=== PATIENT | female | born 1995 | race Caucasian/White ===

== ENCOUNTER 2023-07-02 08:22 | Outpatient (OUT) | payer OTHER, SELFPAY ==
[2023-07-02 10:37] LABS: HCG Quantitative <1 mIU/mL; Thyroid Stimulating Hormone 1.841 uIU/mL (0.358-3.740)
[2023-07-02 10:43] LABS: Estimated Average Glucose 88 mg/dL; Glycohemoglobin A1C 4.7 % (4.5-6.2)
[2023-07-03 09:07] LABS: FSH 5.9 mIU/mL (.); Luteinizing Hormone(LH) 9.1 mIU/mL (.)
[2023-07-06 10:09] LABS: DHEA, Serum 550 ng/dL (31-701)
== END 2023-07-02 08:23 | disposition home or self-care (01) ==
LOC: LAB 08:22
PROVIDERS: Visit Provider Obstetrics & Gynecology
DX: N92.0 Excessive and frequent menstruation with regular cycle (principal); N83.209 Unspecified ovarian cyst, unspecified side; E28.2 Polycystic ovarian syndrome
CPT/HCPCS: 36415; 82626; 82627; 83001; 83002; 83036; 84439; 84443; 84702

== ENCOUNTER 2023-08-08 12:18 | Outpatient (OUT) | payer OTHER, SELFPAY ==
--- NOTE | 2023-08-08 14:46 | US_ITS ---
The [address] [address] Patient Name: FRED WOO MRN: [id number] date: 1995 Sex: F Assigned Patient Location: [place] Current Patient Location: [place] Accession/Order Number: [id number] Exam Date: 08/08/2023 14:47 Report Date: 08/08/2023 16:09 At the request of: TEDDY SHINE Procedure: US pelvis w/ transvaginal EXAMINATION: US pelvis w/ transvaginal HISTORY: MENORRHAGIA , chronic pelvic pain on right side COMPARISON: No relevant comparison available. TECHNIQUE: Transabdominal and/or transvaginal sonographic examination was performed as indicated by examination type. 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 Uterus size: 7.7 x 3.1 x 5.4 cm ENDOMETRIUM: Not well seen; but not abnormally thickened. RIGHT OVARY: Normal size and appearance. Duplex Doppler demonstrates normal waveform and flow; resistive index 0.6. Ovary size: 2.4 x 1.8 x 2.7 cm LEFT OVARY: Normal size and appearance. Duplex Doppler demonstrates normal waveform and flow; resistive index 0.6. Ovary size: 2.4 x 1.8 x 2.7 cm CUL-DE-SAC: Unremarkable. No significant free fluid. BLADDER: Unremarkable. OTHER: None. US/US pelvis w/ transvaginal IMPRESSION: 1. Heterogeneous uterus which is not well seen were displayed on today's study, but suspicious for bicornuate uterus. Consider follow-up ultrasound for reevaluation and/or MRI of pelvis. Electronically authenticated by: JOSE DANIEL HERNANDEZ Date: 08/08/2023 16:09
== END 2023-08-08 12:19 | disposition home or self-care (01) ==
LOC: US 12:18
PROVIDERS: Visit Provider Obstetrics & Gynecology
DX: N92.0 Excessive and frequent menstruation with regular cycle (principal); E28.2 Polycystic ovarian syndrome
CPT/HCPCS: 76830; 76856

== ENCOUNTER 2023-08-25 07:49 | Outpatient (OUT) | payer OTHER, SELFPAY | END 2023-08-25 07:50 | disposition home or self-care (01) | LOC: PST 07:50 | PROVIDERS: Visit Provider Obstetrics & Gynecology | DX: Z01.818 Encounter for other preprocedural examination (principal); N92.0 Excessive and frequent menstruation with regular cycle; R10.2 Pelvic and perineal pain; N94.10 Unspecified dyspareunia ==

== ENCOUNTER 2023-09-02 09:14 | Day surgery (SDC) | payer OTHER, SELFPAY ==
[2023-08-25 08:32] VITALS: BP 117/78; PULSE 87; RESP 20; TEMP 36.2; O2SAT 100; BMI 37.4
[2023-09-02] VITALS (11 sets, daily range): BP systolic 99–124; BP diastolic 57–84; PULSE 87–110; RESP 10–22; TEMP 36.3–37.3; O2SAT 97–100; BMI 37.2
[2023-09-02 09:26] LABS: Basophils Percent Auto 0.5 % (0.2-2.0); Eosinophils Absolute Auto 0.1 10^3/uL (0.0-0.7); Eosinophils Percent Auto 1.8 % (0.9-7.0); Hemoglobin 12.9 g/dL (12.0-16.0); Immature Granulocytes Abs Auto 0.02 10^3/uL (0.00-0.03); Immature Granulocytes Pct Auto 0.3 % (0.0-0.5); Lymphocytes Absolute Auto 1.8 10^3/uL (1.2-3.8); Lymphocytes Percent Auto 23.7 % (20.5-60.0); Mean Corpuscular HGB Conc 33.9 g/dL (29.9-35.2); Mean Corpuscular Hemoglobin 28.4 pg (26.7-34.0); Mean Corpuscular Volume 83.5 fL (81.0-99.0); Mean Platelet Volume 9.3 fL (9.5-13.5); Monocytes Absolute Auto 0.5 10^3/uL (0.3-0.8); Monocytes Percent Auto 6.3 % (1.7-12.0); Neutrophils Absolute Auto 5.1 10^3/uL (1.4-6.5); Neutrophils Percent Auto 67.4 % (43.0-75.0); Platelet Count 363 10^3/uL (150-450); Red Blood Count 4.55 10^6/uL (4.20-5.40); Red Cell Distribution Width 12.2 % (11.0-15.0); White Blood Count 7.6 10^3/uL (4.0-11.0)
[2023-09-02 10:00] LABS: HCG Quantitative <1 mIU/mL
[2023-09-02] MEDS: LACTATED RINGER'S SOLUTION 1,000 ML 50 ML IV ×2 (10:05→13:06)
--- NOTE | 2023-09-02 13:11 | PM.ONB ---
Brief Operative Note Date of procedure: 09/02/23 Pre-op diagnosis: pelvic pain, menorrhagia Post-op diagnosis: same as pre-op Procedure: NAME OF PROCEDURE: [ D&c hysteroscopy with myosure, Diagnostic laparoscopy] small uterine subserosal fibroid noted, evidence of fluid in culdesac most likely from ruptured cyst PROCEDURE: The patient was taken back to the Operating Room where she was prepped and draped in normal sterile fashion after being placed under general anesthesia without difficulty. She was also placed in the dorsal lithotomy position. A weighted speculum was placed in the patient?s vagina. The anterior lip of the cervix was identified and grasped with a single tooth tenaculum. The patient?s uterus was then sounded roughly to [? 8] cm. The patient was then gently dilated using Hegar dilators. The hysteroscope was passed through the patient?s cervix into the uterus. Both ostia were identified. fluffy appearing endometrium. No gross evidence of malignancy, no gross evidence of polyps or fibroids. The MyoSure was then placed through the scope into the uterus, endometrial sampling in all quadrants was then performed. the myosure apparatus was removed along with the hysteroscope from the patient's uterus. At that point, gentle curettage was performed until a gritty texture was noted. The endometrial curettings were sent out to pathology. The single tooth tenaculum was then removed from the patient's anterior lip of the cervix where excellent hemostasis was noted. All instruments were removed from the patient?s vagina. A sponge stick was placed into the patient's vagina. Attention was turned to the patient's abdomen, where a small umbilical incision was made. The fascia was tented using John clamps and the fascia was entered sharply. Confirmation of intraabdominal placement of the 10 mm port was confirmed under direct visualization using a laparoscope. The patient's abdomen was then insufflated using CO2 gas with approximately 4 liters. A second port was placed left laterally, this was done under direct visualization with a 5 mm port. Survey of the patient's abdomen demonstrated normal liver and gallbladder. Survey of the patient's pelvic anatomy demonstrated normal appearing rt and lt ovary and tubes as well as normal appearing uterus, except for small subserosal fibroid. No endometrial implants could be noted, no evidence of any pelvic disease was seen, normal appearing pelvic cavity. All instruments were removed from the patient's abdomen. The patient's abdomen was deinsufflated of CO2 gas. The patient tolerated the procedure well. Sponge stick was removed from the patient's vagina. The patient's infraumbilical fascia was closed using #0 Vicryl on a GI needle. The patient's skin was closed laterally and infraumbilically using 4-0 Vicryl. The patient tolerated the procedure well. Sponge, lap and needle counts were correct x 2. The patient was taken to Recovery Room in stable condition. Anesthesia: CARLOS EDUARDO Surgeon: Savage Mejia [employer] Mechanic: Dorcas Arevalo Estimated blood loss (mL): 5 Pathology: none sent Condition: stable Disposition: PACU
[2023-09-02] MEDS: HYDROMORPHONE HCL 0.5 MG/0.5 ML SYRINGE IV (13:36)
[2023-09-02] MEDS: PROMETHAZINE HCL 25 MG TABLET PO (14:26)
--- NOTE | 2023-09-02 14:28 | PC.NURSE ---
c/o nausea; no emesis; medicated with Phenergan as ordered
--- NOTE | 2023-09-02 14:42 | PC.NURSE ---
No further c/o nausea; denies urge to void; peripad dry
[2023-09-02] MEDS: LACTATED RINGER'S SOLUTION 1,000 ML 150 ML IV (15:07)
--- NOTE | 2023-09-02 15:10 | PC.NURSE ---
Denies urge to void; peripad dry
--- NOTE | 2023-09-02 15:43 | PC.NURSE ---
Up to bathroom and voids clear yellow without difficulty
== END 2023-09-02 15:30 | disposition home or self-care (01) ==
PROVIDERS: PCP Family Medicine; Visit Provider Obstetrics & Gynecology
PROC: (CPT 49320; principal; 2023-09-02 10:35)
DX: N92.0 Excessive and frequent menstruation with regular cycle (principal); R10.2 Pelvic and perineal pain; D25.2 Subserosal leiomyoma of uterus; N94.10 Unspecified dyspareunia; Q51.818 Other congenital malformations of uterus; J45.909 Unspecified asthma, uncomplicated
CPT/HCPCS: 49320; 58558; 36415; 84702; 85025; 88305; J1170; J2704

== ENCOUNTER 2023-11-28 20:45 | Outpatient (REF) | payer OTHER, SELFPAY ==
--- OUTSIDE RECORDS SUMMARY | 2023-11-28 20:48 | XMS_ITS | CCD ---
Author Name Unknown Address [facility] [address] [place] [address] Organization [facility] Care Team Providers Care Strategic Alliances Manager Name Role Phone MARYAM AC Attending Unavailable MARYAM AC Consulting Unavailable MARYAM AC Admitting Unavailable Maryam Ac Unavailable DO Maryam Ac Primary Care Provider [phone] DO Maryam Ac Attending Provider Femi Cordoba Unavailable Dahiana Garcia Unavailable DO Maryam Ac Primary Care Provider DO Maryam Ac Attending Provider DO Maryam Ac Primary Care Provider DO Maryam Ac Attending Provider DO Maryam Ac Primary Care Provider DO Maryam Ac Attending Provider Maryam Ac Admitting Unavailable Maryam Ac Primary Care Unavailable Maryam Ac Attending Unavailable Maryam Ac Admitting Unavailable Maryam Ac Primary Care Unavailable Maryam Ac Attending Unavailable Maryam Ac Admitting Unavailable Maryam Ac Primary Care Unavailable Maryam Ac Attending Unavailable Maryam Ac Admitting Unavailable Maryam Ac Primary Care Unavailable Maryam Ac Attending Unavailable Maryam Ac Admitting Unavailable Maryam Ac Primary Care Unavailable Maryam Ac Attending Unavailable TEDDY MEJIA Attending Unavailable ZEESHAN DONOHUE Attending Unavailable ZEESHAN DONOHUE Referring Unavailable Allergies Allergy Classification Reported Allergen(s) Allergy Type Date of Onset Reaction(s) Facility (15 sources) Amoxicillin / Clavulanate Drug Allergy upset stomach [employer] Other (6 sources) Escitalopram Drug Allergy had thoughts of harming herself [facility] [facility] Other (20 sources) Morphine Drug Allergy 2 hives [facility] (6 sources) venlafaxine Drug Allergy 75 MG caused thoughts of harming herself [facility] [facility] Other (3 sources) Amoxicillin / Clavulanate Drug Allergy upset stomach [facility] [facility] Other (1 source) Morphine Drug Allergy 2 [facility] Repository Medications Current Medications Medication Drug Class(es) Dates Sig (Normalized) Sig (Original) [id number] 200 actuat albuterol 0.09 mg/actuat metered dose inhaler (6 sources) beta2-Adrenergic Agonist take 2 puff(s) by inhalation every four hours as needed ProAir HFA 108 (90 Base) MCG/ACT 2 puffs as needed Inhalation every 4 hrs prn for 90 days Active azithromycin 250 mg oral tablet (2 sources) Macrolide Antimicrobial Start: 08-19-2023 Azithromycin 250 MG 2 tablets on day 1 Orally then take 1 tablet daily on days 2-5 for 5 days Aug, Active 24 hr buPROPion hydrochloride 300 mg extended release oral tablet (20 sources) Aminoketone take 1 tablet by mouth every twenty-four hours Wellbutrin XL 300 MG 1 tablet in the morning Orally Once a day Active take 1 tablet by conchis th every twelve hours buPROPion HCl 100 MG 1 tablet Orally Twi ce a day Not-Taking/PRN take 1 tablet by conchis th every twenty-four hours Wellbutrin XL 150 MG 1 tablet in the mor flor Orally Once a day Active take 1 tablet by conchis th every twelve hours buPROPion HCl 75 MG 1 tablet Orally Twic e a day Active ciprofloxacin 500 mg oral tablet (2 sources) Quinolone Antimicrobial Start: 11-01-2023 take 1 tablet by mouth every twelve hours Ciprofloxacin HCl 500 MG 1 tablet Orally Twice a day Oct, Active hydrOXYzine hydrochloride 25 mg oral tablet (6 sources) Antihistamine take 1 tablet by mouth every eight hours hydrOXYzine HCl 25 MG 1 tablet as needed Orally every 8 hrs prn Active montelukast 10 mg oral tablet (18 sources) Leukotriene Receptor Antagonist take 1 tablet by mouth every twenty-four hours Singulair 10 mg 1 tablet in the evening Orally Once a day Active predniSONE 20 mg oral tablet (2 sources) Start: 08-19-2023 take 2 tablets by mouth once daily at mealtime predniSONE 20 MG 2 tablets Orally qd with food or milk for 5 days Aug, Active ProAir HFA 108 (90 Base) MCG/ACT (12 sources) take 2 puff(s) by inhalation every four hours as needed ProAir HFA 108 (90 Base) MCG/ACT 2 puffs as needed Inhalation every 4 hrs prn Active take 2 puff(s) by in halation every four hours as needed ProAir HFA 108 (90 Base) MCG/ACT 2 puffs as needed Inhalation every 4 hrs prn for 90 days Active 24 hr propranolol hydrochloride 80 mg extended release oral capsule (6 sources) beta-Adrenergic Madiha Start: 09-16-2021 take 1 capsule by mouth every twenty-four hours Inderal LA 80 MG 1 capsule Orally Once a day for 90 days Sep, Active traZODone hydrochloride 50 mg oral tablet (2 sources) Serotonin Reuptake Inhibitor take 1 tablet by mouth every twenty-four hours traZODone HCl 50 MG 1 tablet at bedtime as needed Orally Once a day Active Completed/Discontinued Medications Medication Drug Class(es) Dates Sig (Normalized) Sig (Original) cephalexin 500 mg oral capsule (2 sources) Cephalosporin Antibacterial Start: 04-06-2023 take 1 capsule by mouth every six hours Cephalexin 500 MG 1 capsule Orally qid for 7 days March, Not-Taking 12 hr cloNIDine hydrochloride 0.1 mg extended release oral tablet (18 sources) Central alpha-2 Adrenergic Agonist take 1 tablet by mouth every twenty-four hours cloNIDine HCl 0.1 MG 1 tablet Orally Once a day Not-Taking/PRN cloNIDine HCl ER 0.1 MG 1 tablet every morning Orally Once a day Not-Taking/PRN 24 hr venlafaxine 37.5 mg extended release oral capsule (3 sources) Serotonin and Norepinephrine Reuptake Inhibitor take 1 capsule by mouth every twenty-four hours Effexor XR 37.5 MG 1 capsule with food Orally Once a day for 7 days Not-Taking Problems Active Problems Problem Classification Problem Date Documented Da te Episodic/Chronic Anxiety disorders (20 sources) Panic disorder; Translations: [Panic disorder [episodic paroxysmal anxiety]] Onset: 09-16-2021 Resolved: 04-29-2022 Chronic Asthma (20 sources) Asthma; Translations: [Unspecified asthma, uncomplicated] Onset: 09-16-2021 Resolved: 04-29-2022 Chronic Genitourinary symptoms and ill-defined conditions (3 sources) Hematuria, unspecified; Translations: [Hematuria, unspecified] Onset: 05-25-2022 Resolved: 05-25-2022 Episodic Headache; including migraine (4 sources) Migraine, unspecified, not intractable, without status migrainosus Onset: 09-16-2021 Resolved: 04-29-2022 Chronic Immunizations and screening for infectious disease (4 sources) Contact with and (suspected) exposure to other viral communicable diseases; Translations: [CONTCT EXPS OTH VIRL COMMUNICABL DZ] Onset: 10-17-2020 Episodic Menstrual disorders (3 sources) Dysmenorrhea; Translations: [Dysmenorrhea, unspecified] Chronic Other aftercare (1 source) Other alf (current) drug therapy Episodic Other gastrointestinal disorders (1 source) Diarrhea, unspecified Episodic Other gastrointestinal disorders (4 sources) Dysphagia; Translations: [Dysphagia, unspecified] Episodic Other gastrointestinal disorders (1 source) Dysphagia, unspecified Episodic Other liver diseases (13 sources) Steatosis of liver; Translations: [Fatty (change of) liver, not elsewhere classified] Chronic Other liver diseases (3 sources) Fatty (change of) liver, not elsewhere classified Chronic Other liver diseases (4 sources) Hepatic fibrosis; Translations: [Liver fibrosis] Chronic Other lower respiratory disease (1 source) Cough; Translations: [COUGH] Onset: 10-31-2020 Episodic Other lower respiratory disease (1 source) Shortness of breath Episodic Other nutritional; endocrine; and metabolic disorders (4 sources) Abnormal weight loss Onset: 10-27-2021 Resolved: 04-29-2022 Episodic Other upper respiratory infections (19 sources) Acute pharyngitis, unspecified; Translations: [Acute sinusitis] Onset: 10-31-2020 Episodic Residual codes; unclassified (18 sources) Insomnia; Translations: [Insomnia, unspecified] Episodic Residual codes; unclassified (1 source) Pain, unspecified Episodic Residual codes; unclassified (1 source) Insomnia, unspecified Episodic Unclassified (1 source) Other manager terminal (current) drug therapy; Translations: [Other alf (current) drug therapy] Onset: 12-29-2022 Past or Other Problems Problem Classification Problem Date Documented Da te Episodic/Chronic Abdominal pain (5 sources) Unspecified abdominal pain; Translations: [Unspecified abdominal pain] Onset: 05-25-2022 Resolved: 05-25-2022 Episodic Malaise and fatigue (2 sources) Other fatigue; Translations: [Other fatigue] Onset: 12-29-2022 Episodic Other circulatory disease (2 sources) Elevated blood-pressure reading, without diagnosis of hypertension Onset: 09-16-2021 Resolved: 10-27-2021 Episodic Other hematologic conditions (3 sources) Other abnormality of red blood cells; Translations: [Other abnormality of red blood cells] Onset: 12-29-2022 Episodic Unclassified (8 sources) Liver fibrosis; Translations: [Liver fibrosis] Unclassified (1 source) Liver fibrosis K74.00 Viral infection (1 source) COVID-19 Results Test Name Value Interpretation Reference Range Facility Automated erythrocytes count in urine sediment (number/area)Ordered By: Maryam Ac on 11-08-2023 RBC Auto (Urine sed) [#/Area] 0-1 [HPF] 0-4 [facility] Automated leukocytes count i n urine sediment (number/area)Ordered By: Maryam Ac on 11-08-2023 WBC Auto (Urine sed) [#/Area] 0-1 [HPF] 0-4 [facility] Bilirubin Test strip Ql (U)O rdered By: Maryam Ac on 11-08-2023 Bilirubin Ql (U) Negative Negative [facility] Color Auto (U)Ordered By: Brad Ac on 11-08-2023 Color (U) Yellow Yellow [facility] Dipstick and Microscopicon 1 01-09-2023 Appearance (U) Clear Normal Clear [facility] Comment on above: Order Comment: Reaso n for Exam Abdominal pain Name Collection Type:: Clean-Voided Midstream Performed By: #### C UU, CBC, ADDONUAPLUS, CMP, LIPASE, POLLO #### [address] Bacteria,Urine None Seen Normal None Seen [facility] Comment on above: Order Comment: Reaso n for Exam Abdominal pain Name Collection Type:: Clean-Voided Midstream Performed By: #### C UU, CBC, ADDONUAPLUS, CMP, LIPASE, POLLO #### [facility] [address] Bilirubin,Urine Negative Normal Negative [facility] Comment on above: Order Comment: Reaso n for Exam Abdominal pain Name Collection Type:: Clean-Voided Midstream Performed By: #### C UU, CBC, ADDONUAPLUS, CMP, LIPASE, POLLO #### [facility] [address] Color (U) Yellow Normal Yellow [facility] Comment on above: Order Comment: Reaso n for Exam Abdominal pain Name Collection Type:: Clean-Voided Midstream Performed By: #### C UU, CBC, ADDONUAPLUS, CMP, LIPASE, POLLO #### [facility] [address] [place] [address] Glucose Ql (U) Normal Normal Normal [facility] Comment on above: Order Comment: Reaso n for Exam Abdominal pain Name Collection Type:: Clean-Voided Midstream Performed By: #### C UU, CBC, ADDONUAPLUS, CMP, LIPASE, POLLO #### [address] Hyaline Casts,Urine 0-8 Normal 0-8 [facility] Comment on above: Order Comment: Reaso n for Exam Abdominal pain Name Collection Type:: Clean-Voided Midstream Result Comment: PERF ORMED BY: [place] [address] PATHOLOGIST INTERNATIONAL OPERATIONS MANAGER NEO JOSEPH M.D. Performed By: #### C UU, CBC, ADDONUAPLUS, CMP, LIPASE, POLLO #### [facility] [address] Ketones Ql (U) Negative Normal Negative [facility] Comment on above: Order Comment: Reaso n for Exam Abdominal pain Name Collection Type:: Clean-Voided Midstream Performed By: #### C UU, CBC, ADDONUAPLUS, CMP, LIPASE, POLLO #### [facility] [address] Leukocyte esterase Test strip Ql (U) 1+ High Negative [facility] Comment on above: Order Comment: Reaso n for Exam Abdominal pain Name Collection Type:: Clean-Voided Midstream Performed By: #### C UU, CBC, ADDONUAPLUS, CMP, LIPASE, POLLO #### [facility] [address] [place] [address] Nitrite,Urine Negative Normal Negative [facility] Comment on above: Order Comment: Reaso n for Exam Abdominal pain Name Collection Type:: Clean-Voided Midstream Performed By: #### C UU, CBC, ADDONUAPLUS, CMP, LIPASE, POLLO #### [address] Occult Blood,Urine Negative Normal Negative [facility] Comment on above: Order Comment: Reaso n for Exam Abdominal pain Name Collection Type:: Clean-Voided Midstream Performed By: #### C UU, CBC, ADDONUAPLUS, CMP, LIPASE, POLLO #### [address] pH (U) 7.5 [pH] Normal 5.0-9.0 [facility] Comment on above: Order Comment: Reaso n for Exam Abdominal pain Name Collection Type:: Clean-Voided Midstream Performed By: #### C UU, CBC, ADDONUAPLUS, CMP, LIPASE, POLLO #### [facility] [address] [place] [address] Protein,Urine Negative Normal Negative [facility] Comment on above: Order Comment: Reaso n for Exam Abdominal pain Name Collection Type:: Clean-Voided Midstream Performed By: #### C UU, CBC, ADDONUAPLUS, CMP, LIPASE, POLLO #### [facility] [address] [place] [address] RBC LM.HPF (Urine sed) [#/Area] 0 /[HPF] Normal 0-4 [facility] Comment on above: Order Comment: Reaso n for Exam Abdominal pain Name Collection Type:: Clean-Voided Midstream Performed By: #### C UU, CBC, ADDONUAPLUS, CMP, LIPASE, POLLO #### [facility] [address] Specificy Hubbard,Urine 1.007 Normal 1.001-1.030 [facility] Comment on above: Order Comment: Reaso n for Exam Abdominal pain Name Collection Type:: Clean-Voided Midstream Performed By: #### C UU, CBC, ADDONUAPLUS, CMP, LIPASE, POLLO #### [facility] [address] Squamous Epithelial Cell,Urine 0-1 Normal 0-2 [facility] Comment on above: Order Comment: Reaso n for Exam Abdominal pain Name Collection Type:: Clean-Voided Midstream Performed By: #### C UU, CBC, ADDONUAPLUS, CMP, LIPASE, POLLO #### [address] Urobilinogen,Urine Normal Normal Normal [facility] Comment on above: Order Comment: Reaso n for Exam Abdominal pain Name Collection Type:: Clean-Voided Midstream Performed By: #### C UU, CBC, ADDONUAPLUS, CMP, LIPASE, POLLO #### [address] WBC LM.HPF (Urine sed) [#/Area] 0 /[HPF] Normal 0-4 [facility] Comment on above: Order Comment: Reaso n for Exam Abdominal pain Name Collection Type:: Clean-Voided Midstream Performed By: #### C UU, CBC, ADDONUAPLUS, CMP, LIPASE, POLLO #### [address] Ketones Auto test strip (U) [Mass/Vol]Ordered By: Maryam Ac on 11-08-2023 Ketones (U) [Mass/Vol] Negative Negative [facility] - UrinalysisOrder ed By: Maryam Ac on 11-08-2023 Hyaline casts LM Ql (Urine sed) 0-8 [LPF] 0-8 [facility] Nitrite Test strip Ql (U)Ord ered By: Maryam Ac on 11-08-2023 Nitrite Ql (U) Negative Negative [facility] Protein Auto test strip (U) [Mass/Vol]Ordered By: Maryam Ac on 11-08-2023 Protein (U) [Mass/Vol] Negative Negative [facility] Specific gravity Auto test s trip (U) [Rel density]Ordered By: Maryam Ac on 11-08-2023 Specific gravity (U) [Rel density] 1.007 1.001-1.030 [facility] Squamous epithelial cells de tection in urine sediment by light microscopyOrdered By: Maryam Ac on 11-08-2023 Epithelial cells.squamous LM Ql (Urine sed) 0-1 [HPF] 0-2 [facility] Urine Cultureon 11-08-2023 Bacteria identified Cx Nom (U) 30,000 colonies/ml mixed bacterial skin contaminants 2 Days PERFORMED BY: [place] [address] PATHOLOGIST INTERNATIONAL OPERATIONS MANAGER NEO JOSEPH M.D. [facility] Comment on above: Performed By: #### C UU, CBC, ADDONUAPLUS, CMP, LIPASE, POLLO #### [address] Urine bacteria detection by automated methodOrdered By: Maryam Ac on 11-08-2023 Bacteria Auto Ql (U) None seen None Seen [facility] Urine clarity by refractomet ry automatedOrdered By: Maryam Ac on 11-08-2023 Clarity Refractometry automated (U) Clear Clear [facility] Urine glucose measurement by automated test strip (mass/volume)Ordered By: Maryam Ac on 11-08-2023 Glucose Auto test strip (U) [Mass/Vol] Normal mg/dL Normal [facility] Urine hemoglobin detection b y automated test stripOrdered By: Maryam Ac on 11-08-2023 Hemoglobin Auto test strip Ql (U) Negative Negative [facility] Urine leukocyte esterase det ection by automated test stripOrdered By: Maryam Ac on 11-08-2023 Leukocyte esterase Auto test strip Ql (U) 1+ Negative [facility] Urobilinogen Auto test strip (U) [Mass/Vol]Ordered By: Maryam Ac on 11-08-2023 Urobilinogen (U) [Mass/Vol] Normal mg/dL Normal [facility] pH Auto test strip (U)Ordere d By: Maryam Ac on 11-08-2023 pH (U) 7.5 [pH] 5.0-9.0 [facility] US renal BIon 11-03-2023 US renal BI [facility] Main [place] [id number] Ultrasound Report Signed Patient: Tish Woo MR#: [id number] 99 : 1995 Acct:[id number] Age/Sex: 28 / F ADM Date: 11/03/23 Loc: Room: Type: [facility] Attending Dr: Maryam Ac DO Ordering Provider: Maryam Ac DO Date of Service: 11/03/23 US/US renal BI: R31.9 Copies to: aMryam Ac DO Bilateral Renal Ultrasound HISTORY: Flank pain since Tuesday. Hematuria. COMPARISON: None RIGHT kidney measures 10.0 cm. LEFT kidney measures 11.8 cm. Hydronephrosis: None RENAL STONE: No shadowing renal calculus is seen. RENAL LESIONS: No renal lesion identified. URINARY BLADDER: Bilateral ureteral jets identified. Mild post void residual. PROSTATE GLAND Not assessed US/US renal BI IMPRESSION : No hydronephrosis. Impression dictated by: Tin Duran M.D.11/03/2023 3:56 PM Dictation Location: [place] [address] Tech: [facility] Transcribed By: [facility] 11/03/23 1556 Dictated By: Tin Duran DO 11/03/23 1555 Signed By: 11/03/23 1556 Normal [facility] XR ABDOMEN 1 VIEWon 10-30-20 XR ABDOMEN 1 VIEW FINDINGS: Gas and copious stool in colon. No diffuse small bowel dilatation. No mass effect. No abnormal calcification with no calculi identified overlying kidneys bilaterally. Osseous structures intact. IMPRESSION: Constipation. ELECTRONICALLY SIGNED BY: José Miguel Driscoll MD Normal Not Available US gall bladderon 04-19-2023 US gall bladder [facility] [address] [address] Ultrasound Report Signed Patient: Tish Woo MR#: [id number] [birth year] : 1995 Acct:[id number] Age/Sex: 28 / F ADM Date: 04/19/23 Loc: Room: Type: [facility] Attending Dr: Maryam Ac DO Ordering Provider: Maryam Ac DO Date of Service: 04/19/23 US/US gall bladder: Abdominal pain Copies to: Maryam Ac DO Gallbladder ultrasound HISTORY: Abdominal pain COMPARISON: None Negative ultrasound Quinones's sign reported. COMMON BILE DUCT: Normal caliber. No intraluminal abnormality. LIVER CONTOUR: Normal. LIVER PARENCHYMA: Normal echogenicity HEPATIC LESION: None INTRAHEPATIC BILIARY DUCTAL DILATATION No ductal dilatation identified. GALLSTONES: No shadowing gallstones. GALLBLADDER SLUDGE: No gallbladder sludge. GALLBLADDER WALL: Normal thickness PERICHOLECYSTIC FLUID: None Pancreas: Visualized portions of the pancreas unremarkable PORTAL VEIN: Normal blood flow. Liver size: Normal No RIGHT hydronephrosis identified. US/US gall bladder IMPRESSION: Unremarkable exam Impression dictated by: Tin Duran M.D.04/19/2023 10:19 AM Dictation Location: [place] [address] Tech: Neeru Balbuena Transcribed By: [facility] 04/19/23 1019 Dictated By: Tin Duran DO 04/19/23 1007 Signed By: 04/19/23 1019 Normal [facility] Alanine aminotransferase [En zymatic activity/volume] in Serum or PlasmaOrdered By: Maryam Ac on 04-14-2023 ALT [Catalytic activity/Vol] 19 U/L 7-52 [facility] Albumin [Mass/volume] in Ser um or Plasma by Bromocresol green (BCG) dye binding methoOrdered By: Maryam Ac on 04-14-2023 Albumin BCG dye [Mass/Vol] 4.6 g/dL 3.5-5.7 [facility] Alkaline phosphatase [Enzyma tic activity/volume] in Serum or PlasmaOrdered By: Maryam Ac on 04-14-2023 ALP [Catalytic activity/Vol] 70 U/L 34-104 [facility] Amylaseon 04-14-2023 Amylase 32 U/L Normal 29-103 U/L [employer] Other Amylase [Catalytic activity/Vol] 32 U/L Normal 29-103 [facility] Comment on above: Order Comment: Reaso n for Exam Abdominal pain Performed By: #### C UU, CBC, ADDONUAPLUS, CMP, LIPASE, POLLO #### [facility] [address] Amylase [Enzymatic activity/ volume] in Serum or PlasmaOrdered By: Maryam Ac on 04-14-2023 Amylase [Catalytic activity/Vol] 32 U/L 29103 [facility] Aspartate aminotransferase [ Enzymatic activity/volume] in Serum or PlasmaOrdered By: Maryam Ac on 04-14-2023 AST [Catalytic activity/Vol] 14 U/L 13-39 [facility] Automated erythrocytes count in urine sediment (number/area)Ordered By: Maryam Ac on 04-14-2023 RBC Auto (Urine sed) [#/Area] 0-1 [HPF] 0-4 [facility] Automated leukocytes count i n urine sediment (number/area)Ordered By: Maryam Ac on 04-14-2023 WBC Auto (Urine sed) [#/Area] 5-9 [HPF] 0-4 [facility] Basophils Auto (Bld) [#/Vol] Ordered By: Maryam Ac on 04-14-2023 Basophils (Bld) [#/Vol] 0.0 10*3/uL 0.0-0.2 [facility] Basophils/100 WBC Auto (Bld) Ordered By: Maryam Ac on 04-14-2023 Basophils/100 WBC (Bld) 0.3 % . F [facility] Bilirubin Test strip Ql (U)O rdered By: Maryam Ac on 04-14-2023 Bilirubin Ql (U) Negative Negative [facility] Bilirubin.total [Mass/volume ] in Serum or PlasmaOrdered By: Maryam Ac on 04-14-2023 Bilirubin [Mass/Vol] 0.5 mg/dL 0.3-1.[address] [facility] Calcium [Mass/volume] in Ser um or PlasmaOrdered By: Maryam Ac on 04-14-2023 Calcium [Mass/Vol] 9.9 mg/dL 8.6-10.3 [facility] Carbon dioxide, total [Moles /volume] in Serum or PlasmaOrdered By: Maryam Ac on 04-14-2023 CO2 [Moles/Vol] 27.5 mmol/L 21.0-31.0 [facility] Chloride [Moles/volume] in S james or PlasmaOrdered By: Maryam Ac on 04-14-2023 Chloride [Moles/Vol] 106 mmol/L 98-[address] [facility] Color Auto (U)Ordered By: Brad Ac on 04-14-2023 Color (U) Yellow Yellow [facility] Complete Blood Count Auto Di ffon 04-14-2023 Basophils (Bld) [#/Vol] [id number] 10*3/uL Normal 0.0-0.2 10*3/uL [employer] Other Basophils/100 WBC (Bld) 0.300 % . % [employer] Other Eosinophils (Bld) [#/Vol] [id number] 10*3/uL Normal 0.0-0.45 10*3/uL [employer] Other Eosinophils/100 WBC (Bld) 1.400 % . % [employer] Other Erythrocyte distribution width (RBC) [Ratio] 12.700 % Normal 11.9-15.3 % [employer] Other Hematocrit (Bld) [Volume fraction] 39.700 % Normal 34.0-46.4 % [employer] Other Hemoglobin (Bld) [Mass/Vol] 13.245199 g/dL Normal 11.8-15.4 g/dL [employer] Other Lymphocytes (Bld) [#/Vol] [id number] 10*3/uL Normal 1.00-4.8 10*3/uL [employer] Other Lymphocytes/100 WBC (Bld) 22.900 % . % [employer] Other MCH (RBC) [Entitic mass] 29.1000 pg Normal 24.7-34.3 p g [employer] Other MCV (RBC) [Entitic vol] 84.6000 fL Normal 80-100 fL [facility] [employer] Other Monocytes (Bld) [#/Vol] [id number] 10*3/uL Normal 0.0-0.8 10*3/uL [employer] Other Monocytes/100 WBC (Bld) 6.300 % . % [facility] [employer] Other Neutrophils (Bld) [#/Vol] 5.541572877 10*3/uL Normal 1.8-7.7 10*3/uL [employer] Other Neutrophils/100 WBC (Bld) 69.100 % . % [employer] Other Platelet mean volume (Bld) [Entitic vol] 8.2000 fL Normal 6.3-10.7 fL [facility] Other WBC (Bld) [#/Vol] 8.208914860 10*3/uL Normal 3.8 -11.6 10*3/uL [employer] Other Complete Blood Count Auto Diff 8.2 10*3/uL Normal 3.8-11.6 10*3/uL [employer] Other Complete Blood Count Auto Diff 34.5 g/dL Normal 32.0-35.0 g/dL [employer] Other Complete Blood Count Auto Diff 0.1 /100{WBC} Normal 0-0.5 /100{WBC} [employer] Other Basophils (Bld) [#/Vol] 0.0 10*3/uL Normal 0.0-0.2 [facility] Comment on above: Order Comment: Reaso n for Exam Abdominal pain Result Comment: PERF ORMED BY: [facility] [address] [place] [address] PATHOLOGIST INTERNATIONAL OPERATIONS MANAGER NEO JOSEPH M.D. Performed By: #### C UU, CBC, ADDONUAPLUS, CMP, LIPASE, POLLO #### [address] Basophils/100 WBC (Bld) 0.3 % Normal . [facility] Comment on above: Order Comment: Reaso n for Exam Abdominal pain Performed By: #### C UU, CBC, ADDONUAPLUS, CMP, LIPASE, POLLO #### [address] Eosinophils (Bld) [#/Vol] 0.1 10*3/uL Normal 0.0-0.45 [facility] Comment on above: Order Comment: Reaso n for Exam Abdominal pain Performed By: #### C UU, CBC, ADDONUAPLUS, CMP, LIPASE, POLLO #### [address] Eosinophils/100 WBC (Bld) 1.4 % Normal . [facility] Comment on above: Order Comment: Reaso n for Exam Abdominal pain Performed By: #### C UU, CBC, ADDONUAPLUS, CMP, LIPASE, POLLO #### [address] Erythrocyte distribution width (RBC) [Ratio] 12.7 % Normal 11.9-15.3 [facility] Comment on above: Order Comment: Reaso n for Exam Abdominal pain Performed By: #### C UU, CBC, ADDONUAPLUS, CMP, LIPASE, POLLO #### [address] Hematocrit (Bld) [Volume fraction] 39.7 % Normal 34.0-46.4 [facility] Comment on above: Order Comment: Reaso n for Exam Abdominal pain Performed By: #### C UU, CBC, ADDONUAPLUS, CMP, LIPASE, POLLO #### [address] Hemoglobin (Bld) [Mass/Vol] 13.7 g/dL Normal 11.8-15.4 [facility] Comment on above: Order Comment: Reaso n for Exam Abdominal pain Performed By: #### C UU, CBC, ADDONUAPLUS, CMP, LIPASE, POLLO #### [facility] [address] Lymphocytes (Bld) [#/Vol] 1.9 10*3/uL Normal 1.00-4.8 [facility] Comment on above: Order Comment: Reaso n for Exam Abdominal pain Performed By: #### C UU, CBC, ADDONUAPLUS, CMP, LIPASE, POLLO #### [address] Lymphocytes/100 WBC (Bld) 22.9 % Normal . [facility] Comment on above: Order Comment: Reaso n for Exam Abdominal pain Performed By: #### C UU, CBC, ADDONUAPLUS, CMP, LIPASE, POLLO #### [address] MCH (RBC) [Entitic mass] 29.1 pg Normal 24.7-34.3 [facility] Comment on above: Order Comment: Reaso n for Exam Abdominal pain Performed By: #### C UU, CBC, ADDONUAPLUS, CMP, LIPASE, POLLO #### [address] MCV (RBC) [Entitic vol] 84.6 fL Normal 80-100 F [facility] Comment on above: Order Comment: Reaso n for Exam Abdominal pain Performed By: #### C UU, CBC, ADDONUAPLUS, CMP, LIPASE, POLLO #### [address] Mean Corpuscular HGB Conc 34.5 g/dL Normal 32.0-35.0 [facility] Comment on above: Order Comment: Reaso n for Exam Abdominal pain Performed By: #### C UU, CBC, ADDONUAPLUS, CMP, LIPASE, POLLO #### [address] Monocytes (Bld) [#/Vol] 0.5 10*3/uL Normal 0.0-0.8 [facility] Comment on above: Order Comment: Reaso n for Exam Abdominal pain Performed By: #### C UU, CBC, ADDONUAPLUS, CMP, LIPASE, POLLO #### [facility] [address] Monocytes/100 WBC (Bld) 6.3 % Normal . F [facility] Comment on above: Order Comment: Reaso n for Exam Abdominal pain Performed By: #### C UU, CBC, ADDONUAPLUS, CMP, LIPASE, POLLO #### [facility] [address] Neutrophils (Bld) [#/Vol] 5.7 10*3/uL Normal 1.8-7.7 [facility] Comment on above: Order Comment: Reaso n for Exam Abdominal pain Performed By: #### C UU, CBC, ADDONUAPLUS, CMP, LIPASE, POLLO #### [facility] [address] Neutrophils/100 WBC (Bld) 69.1 % Normal . [facility] Comment on above: Order Comment: Reaso n for Exam Abdominal pain Performed By: #### C UU, CBC, ADDONUAPLUS, CMP, LIPASE, POLLO #### [facility] [address] NRBC% 0.1 /100{WBC} Normal 0-0.5 [facility] Comment on above: Order Comment: Reaso n for Exam Abdominal pain Performed By: #### C UU, CBC, ADDONUAPLUS, CMP, LIPASE, POLLO #### [address] Platelet mean volume (Bld) [Entitic vol] 8.2 fL Normal 6.3-10.7 [facility] Comment on above: Order Comment: Reaso n for Exam Abdominal pain Performed By: #### C UU, CBC, ADDONUAPLUS, CMP, LIPASE, POLLO #### [facility] [address] [place] [address] [place] Platelets (Bld) [#/Vol] 336 10*3/uL Normal 150-450 [facility] Comment on above: Order Comment: Reaso n for Exam Abdominal pain Performed By: #### C UU, CBC, ADDONUAPLUS, CMP, LIPASE, POLLO #### [facility] [address] RBC (Bld) [#/Vol] 4.70 10*6/uL Normal 3.60-5.00 [facility] Comment on above: Order Comment: Reaso n for Exam Abdominal pain Performed By: #### C UU, CBC, ADDONUAPLUS, CMP, LIPASE, POLLO #### [facility] [address] WBC (Bld) [#/Vol] 8.2 10*3/uL Normal 3.8-11.6 [facility] Comment on above: Order Comment: Reaso n for Exam Abdominal pain Performed By: #### C UU, CBC, ADDONUAPLUS, CMP, LIPASE, POLLO #### [facility] [address] Comprehensive Metabolic Pane andree 04-14-2023 Albumin [Mass/Vol] 4.981719 g/dL Normal 3.5-5.7 g/dL [employer] Other Bilirubin [Mass/Vol] 0.6468837 mg/dL Normal 0.3- 1.0 mg/dL [employer] Other Calcium [Mass/Vol] 9.2848010 mg/dL Normal 8.6-10 .3 mg/dL [employer] Other CO2 [Moles/Vol] 27.05543308 mmol/L Normal 21.0-3 1.0 mmol/L [employer] Other Creatinine [Mass/Vol] 0.18672847 mg/dL Normal 0. 60-1.20 mg/dL [employer] Other Potassium [Moles/Vol] 4.42274215 mmol/L Normal 3 .5-5.1 mmol/L [employer] Other Protein [Mass/Vol] 6.414696 g/dL Normal 6.4-8.9 g/dL [employer] Other Comprehensive Metabolic Panel 2.3 g/dL [employer] Other Albumin [Mass/Vol] 4.6 g/dL Normal 3.5-5.7 [facility] Comment on above: Order Comment: Reaso n for Exam Abdominal pain Performed By: #### C UU, CBC, ADDONUAPLUS, CMP, LIPASE, POLLO #### [facility] [address] Albumin/Globulin [Mass ratio] 2.0 {ratio} Normal [facility] Comment on above: Order Comment: Reaso n for Exam Abdominal pain Performed By: #### C UU, CBC, ADDONUAPLUS, CMP, LIPASE, POLLO #### [facility] [address] ALP [Catalytic activity/Vol] 70 U/L Normal 34-104 [facility] Comment on above: Order Comment: Reaso n for Exam Abdominal pain Performed By: #### C UU, CBC, ADDONUAPLUS, CMP, LIPASE, POLLO #### [facility] [address] ALT [Catalytic activity/Vol] 19 U/L Normal 7-52 [facility] Comment on above: Order Comment: Reaso n for Exam Abdominal pain Performed By: #### C UU, CBC, ADDONUAPLUS, CMP, LIPASE, POLLO #### [address] Anion gap [Moles/Vol] 10.2 mmol/L Normal 6.0-15.0 [facility] Comment on above: Order Comment: Reaso n for Exam Abdominal pain Performed By: #### C UU, CBC, ADDONUAPLUS, CMP, LIPASE, POLLO #### [facility] [address] AST [Catalytic activity/Vol] 14 U/L Normal 13-39 [facility] Comment on above: Order Comment: Reaso n for Exam Abdominal pain Performed By: #### C UU, CBC, ADDONUAPLUS, CMP, LIPASE, POLLO #### [facility] [address] Bilirubin [Mass/Vol] 0.5 mg/dL Normal 0.3-1.[address] [facility] Comment on above: Order Comment: Reaso n for Exam Abdominal pain Performed By: #### C UU, CBC, ADDONUAPLUS, CMP, LIPASE, POLLO #### [facility] [address] Calcium [Mass/Vol] 9.9 mg/dL Normal 8.6-10.3 [facility] Comment on above: Order Comment: Reaso n for Exam Abdominal pain Performed By: #### C UU, CBC, ADDONUAPLUS, CMP, LIPASE, POLLO #### [facility] [address] Chloride [Moles/Vol] 106 mmol/L Normal 98-[address] [facility] Comment on above: Order Comment: Reaso n for Exam Abdominal pain Performed By: #### C UU, CBC, ADDONUAPLUS, CMP, LIPASE, POLLO #### [facility] [address] CO2 [Moles/Vol] 27.5 mmol/L Normal 21.0-31.0 [facility] Comment on above: Order Comment: Reaso n for Exam Abdominal pain Performed By: #### C UU, CBC, ADDONUAPLUS, CMP, LIPASE, POLLO #### [facility] [address] Creatinine [Mass/Vol] 0.70 mg/dL Normal 0.60-1.20 [facility] Comment on above: Order Comment: Reaso n for Exam Abdominal pain Performed By: #### C UU, CBC, ADDONUAPLUS, CMP, LIPASE, POLLO #### [facility] [address] [place] [address] [place] GFR/1.73 sq M.predicted MDRD (S/P/Bld) [Vol rate/Area] mL/min/{1.73_m2} Normal [employer] Other Comment on above: Order Comment: Reaso n for Exam Abdominal pain Performed By: #### C UU, CBC, ADDONUAPLUS, CMP, LIPASE, POLLO #### [facility] [address] Globulin (S) [Mass/Vol] 2.3 g/dL Normal [facility] Comment on above: Order Comment: Reaso n for Exam Abdominal pain Performed By: #### C UU, CBC, ADDONUAPLUS, CMP, LIPASE, POLLO #### [facility] [address] Glucose [Mass/Vol] 85 mg/dL Normal 70-100 [facility] Comment on above: Order Comment: Reaso n for Exam Abdominal pain Result Comment: [facility] Glucose Reference Range is dependent on time and content of last meal. Glucose of more than 200 mg/dL in a nonstressed, ambulatory subject supports the diagnosis of Diabetes Mellitus. ADA recommended reference range Performed By: #### C UU, CBC, ADDONUAPLUS, CMP, LIPASE, POLLO #### [facility] [address] Potassium [Moles/Vol] 4.7 mmol/L Normal 3.5-5.1 [facility] Comment on above: Order Comment: Reaso n for Exam Abdominal pain Performed By: #### C UU, CBC, ADDONUAPLUS, CMP, LIPASE, POLLO #### [facility] [address] Protein [Mass/Vol] 6.9 g/dL Normal 6.4-8.9 [facility] Comment on above: Order Comment: Reaso n for Exam Abdominal pain Performed By: #### C UU, CBC, ADDONUAPLUS, CMP, LIPASE, POLLO #### [facility] [address] [place] [address] [place] Sodium [Moles/Vol] 139 mmol/L Normal 136-145 [facility] Comment on above: Order Comment: Reaso n for Exam Abdominal pain Performed By: #### C UU, CBC, ADDONUAPLUS, CMP, LIPASE, POLLO #### [facility] [address] Urea nitrogen [Mass/Vol] 8 mg/dL Normal 7-25 [facility] Comment on above: Order Comment: Reaso n for Exam Abdominal pain Performed By: #### C UU, CBC, ADDONUAPLUS, CMP, LIPASE, POLLO #### [facility] [address] Creatinine [Mass/volume] in Serum or PlasmaOrdered By: Maryam Ac on 04-14-2023 Creatinine [Mass/Vol] 0.70 mg/dL 0.60-1.20 [facility] Dipstick & Microscopicon Dipstick & Microscopic No [facility] [employer] Other Dipstick and Microscopicon 0 04-14-2023 Appearance (U) Clear Normal Clear [facility] Comment on above: Order Comment: Reaso n for Exam Abdominal pain Name Collection Type:: Clean-Voided Midstream Performed By: #### C UU, CBC, ADDONUAPLUS, CMP, LIPASE, POLLO #### [facility] [address] [place] [address] [place] Bacteria,Urine None Seen Normal None Seen [facility] Comment on above: Order Comment: Reaso n for Exam Abdominal pain Name Collection Type:: Clean-Voided Midstream Performed By: #### C UU, CBC, ADDONUAPLUS, CMP, LIPASE, POLLO #### [facility] [address] [place] [address] [place] Bilirubin,Urine Negative Normal Negative [facility] Comment on above: Order Comment: Reaso n for Exam Abdominal pain Name Collection Type:: Clean-Voided Midstream Performed By: #### C UU, CBC, ADDONUAPLUS, CMP, LIPASE, POLLO #### [facility] [address] [place] [address] [place] Color (U) Yellow Normal Yellow [facility] Comment on above: Order Comment: Reaso n for Exam Abdominal pain Name Collection Type:: Clean-Voided Midstream Performed By: #### C UU, CBC, ADDONUAPLUS, CMP, LIPASE, POLLO #### [facility] [address] [place] [address] [place] Glucose Ql (U) Normal Normal Normal [facility] Comment on above: Order Comment: Reaso n for Exam Abdominal pain Name Collection Type:: Clean-Voided Midstream Performed By: #### C UU, CBC, ADDONUAPLUS, CMP, LIPASE, POLLO #### [facility] [address] [place] [address] Hyaline Casts,Urine 0-8 Normal 0-8 [facility] Comment on above: Order Comment: Reaso n for Exam Abdominal pain Name Collection Type:: Clean-Voided Midstream Result Comment: PERF ORMED BY: [place] [address] PATHOLOGIST INTERNATIONAL OPERATIONS MANAGER NEO JOSEPH M.D. Performed By: #### C UU, CBC, ADDONUAPLUS, CMP, LIPASE, POLLO #### [address] Ketones Ql (U) Negative Normal Negative [facility] Comment on above: Order Comment: Reaso n for Exam Abdominal pain Name Collection Type:: Clean-Voided Midstream Performed By: #### C UU, CBC, ADDONUAPLUS, CMP, LIPASE, POLLO #### [address] Leukocyte esterase Test strip Ql (U) 3+ High Negative [facility] Comment on above: Order Comment: Reaso n for Exam Abdominal pain Name Collection Type:: Clean-Voided Midstream Performed By: #### C UU, CBC, ADDONUAPLUS, CMP, LIPASE, POLLO #### [facility] [address] [place] [address] Nitrite,Urine Negative Normal Negative [facility] Comment on above: Order Comment: Reaso n for Exam Abdominal pain Name Collection Type:: Clean-Voided Midstream Performed By: #### C UU, CBC, ADDONUAPLUS, CMP, LIPASE, POLLO #### [facility] [address] [place] [address] Occult Blood,Urine Negative Normal Negative [facility] Comment on above: Order Comment: Reaso n for Exam Abdominal pain Name Collection Type:: Clean-Voided Midstream Performed By: #### C UU, CBC, ADDONUAPLUS, CMP, LIPASE, POLLO #### [place] [address] pH (U) 7.0 [pH] Normal 5.0-9.0 [facility] Comment on above: Order Comment: Reaso n for Exam Abdominal pain Name Collection Type:: Clean-Voided Midstream Performed By: #### C UU, CBC, ADDONUAPLUS, CMP, LIPASE, POLLO #### [facility] [address] Protein,Urine Negative Normal Negative [facility] Comment on above: Order Comment: Reaso n for Exam Abdominal pain Name Collection Type:: Clean-Voided Midstream Performed By: #### C UU, CBC, ADDONUAPLUS, CMP, LIPASE, POLLO #### [address] RBC LM.HPF (Urine sed) [#/Area] 0 /[HPF] Normal 0-4 [facility] Comment on above: Order Comment: Reaso n for Exam Abdominal pain Name Collection Type:: Clean-Voided Midstream Performed By: #### C UU, CBC, ADDONUAPLUS, CMP, LIPASE, POLLO #### [facility] [address] [place] [address] Specificy Hubbard,Urine 1.009 Normal 1.001-1.030 [facility] Comment on above: Order Comment: Reaso n for Exam Abdominal pain Name Collection Type:: Clean-Voided Midstream Performed By: #### C UU, CBC, ADDONUAPLUS, CMP, LIPASE, POLLO #### [facility] [address] [place] [address] Squamous Epithelial Cell,Urine 1-2 Normal 0-2 [facility] Comment on above: Order Comment: Reaso n for Exam Abdominal pain Name Collection Type:: Clean-Voided Midstream Performed By: #### C UU, CBC, ADDONUAPLUS, CMP, LIPASE, POLLO #### [address] Urobilinogen,Urine Normal Normal Normal [facility] Comment on above: Order Comment: Reaso n for Exam Abdominal pain Name Collection Type:: Clean-Voided Midstream Performed By: #### C UU, CBC, ADDONUAPLUS, CMP, LIPASE, POLLO #### [facility] [address] WBC,Urine 5-9 High 0-4 [facility] Comment on above: Order Comment: Reaso n for Exam Abdominal pain Name Collection Type:: Clean-Voided Midstream Performed By: #### C UU, CBC, ADDONUAPLUS, CMP, LIPASE, POLLO #### [facility] [address] Eosinophils Auto (Bld) [#/Vo l]Ordered By: Maryam Ac on 04-14-2023 Eosinophils (Bld) [#/Vol] 0.1 10*3/uL 0.0-0.45 [facility] Eosinophils/100 WBC Auto (Bl d)Ordered By: Maryam Ac on 04-14-2023 Eosinophils/100 WBC (Bld) 1.4 % . [facility] Erythrocyte distribution wid th Auto (RBC) [Ratio]Ordered By: Maryam Ac on 04-14-2023 Erythrocyte distribution width (RBC) [Ratio] 12.7 % 11.9-15.3 [facility] Erythrocytes [#/volume] in B lood by Automated countOrdered By: Maryam Ac on 04-14-2023 RBC (Bld) [#/Vol] 4.70 10*6/uL 3.60-5.00 [facility] Globulin Calc (S) [Mass/Vol] Ordered By: Maryam Ac on 04-14-2023 Globulin (S) [Mass/Vol] 2.3 g/dL F [facility] Glucose [Mass/volume] in Ser um or PlasmaOrdered By: Maryam Ac on 04-14-2023 Glucose [Mass/Vol] 85 mg/dL 70-100 [facility] Comment on above: ADA recommended refe rence rangeRandom Glucose Reference Range is dependent on time and content of last meal. Glucose of more than 200 mg/dL in a nonstressed, ambulatory subject supports the diagnosis of Diabetes Mellitus. Hematocrit Auto (Bld) [Volum e fraction]Ordered By: Maryam Ac on 04-14-2023 Hematocrit (Bld) [Volume fraction] 39.7 % 34.0-46.4 [facility] Hemoglobin [Mass/volume] in BloodOrdered By: Maryam Ac on 04-14-2023 Hemoglobin (Bld) [Mass/Vol] 13.7 g/dL 11.8-15.4 [facility] Ketones Auto test strip (U) [Mass/Vol]Ordered By: Maryam Ac on 04-14-2023 Ketones (U) [Mass/Vol] Negative Negative Fi [facility] Laboratory - UrinalysisOrder ed By: Maryam Ac on 04-14-2023 Hyaline casts LM Ql (Urine sed) 0-8 [LPF] 0-8 [facility] Leukocytes [#/volume] correc aylin for nucleated erythrocytes in Blood by Automated counOrdered By: Maryam Ac on 04-14-2023 WBC corrected for nucl RBC Auto (Bld) [#/Vol] 8.2 10*3/uL 3.8-11.6 [facility] Lipaseon 04-14-2023 Lipase [Catalytic activity/Vol] 32.51156 U/L Normal 11.0-82.0 U/L [employer] Other Lipase [Catalytic activity/Vol] 32.0 U/L Normal 11.0-82.0 [facility] Comment on above: Order Comment: Reaso n for Exam Abdominal pain Result Comment: PERF ORMED BY: [place] [address] PATHOLOGIST INTERN[employer] OPERATIONS MANAGER NEO JOSEPH M.D. Performed By: #### C UU, CBC, ADDONUAPLUS, CMP, LIPASE, POLLO #### [facility] [address] Lipase [Enzymatic activity/v olume] in Serum or PlasmaOrdered By: Maryam Ac on 04-14-2023 Lipase [Catalytic activity/Vol] 32.0 U/L 11.0-82.0 [facility] Lymphocytes Auto (Bld) [#/Vo l]Ordered By: Maryam Ac on 04-14-2023 Lymphocytes (Bld) [#/Vol] 1.9 10*3/uL 1.00-4.8 [facility] Lymphocytes/100 WBC Auto (Bl d)Ordered By: Maryam Ac on 04-14-2023 Lymphocytes/100 WBC (Bld) 22.9 % . [facility] MCH Auto (RBC) [Entitic mass ]Ordered By: Maryam Ac on 04-14-2023 MCH (RBC) [Entitic mass] 29.1 pg 24.7-34.3 [facility] MCHC Auto (RBC) [Mass/Vol]Or dered By: Maryam Ac on 04-14-2023 MCHC (RBC) [Mass/Vol] 34.5 g/dL 32.0-35.0 [facility] MCV Auto (RBC) [Entitic vol] Ordered By: Maryam Ac on 04-14-2023 MCV (RBC) [Entitic vol] 84.6 fL 80-100 F [facility] Monocytes Auto (Bld) [#/Vol] Ordered By: Maryam Ac on 04-14-2023 Monocytes (Bld) [#/Vol] 0.5 10*3/uL 0.0-0.8 [facility] Monocytes/100 WBC Auto (Bld) Ordered By: Maryam Ac on 04-14-2023 Monocytes/100 WBC (Bld) 6.3 % . [facility] Neutrophils Auto (Bld) [#/Vo l]Ordered By: Maryam Ac on 04-14-2023 Neutrophils (Bld) [#/Vol] 5.7 10*3/uL 1.8-7.7 [facility] Neutrophils/100 WBC Auto (Bl d)Ordered By: Maryam Ac on 04-14-2023 Neutrophils/100 WBC (Bld) 69.1 % . [facility] Nitrite Test strip Ql (U)Ord ered By: Maryam Ac on 04-14-2023 Nitrite Ql (U) Negative Negative [facility] No Panel InformationOrdered By: Maryam Ac on 04-14-2023 Estimated GFR (CKD-EPI) > 60.0 mL/Min [facility]acy Creatinine Clearance (Chem N/A [facility] Nucleated erythrocytes [Pres ence] in Blood by Automated countOrdered By: Maryam Ac on 04-14-2023 Nucleated RBC Auto Ql (Bld) 0.1 /100{WBC} 0-0.5 [facility] Platelet mean volume Auto (B ld) [Entitic vol]Ordered By: Maryam Ac on 04-14-2023 Platelet mean volume (Bld) [Entitic vol] 8.2 fL 6.3-10.7 [facility] Platelets [#/volume] in Bloo d by Automated countOrdered By: Maryam Ac on 04-14-2023 Platelets (Bld) [#/Vol] 336 10*3/uL 150-450 [facility] Potassium [Moles/volume] in Serum or PlasmaOrdered By: Maryam Ac on 04-14-2023 Potassium [Moles/Vol] 4.7 mmol/L 3.5-5.1 [facility] Protein Auto test strip (U) [Mass/Vol]Ordered By: Maryam Ac on 04-14-2023 Protein (U) [Mass/Vol] Negative Negative [facility] Protein [Mass/volume] in Ser um or PlasmaOrdered By: Maryam Ac on 04-14-2023 Protein [Mass/Vol] 6.9 g/dL 6.4-8.9 [facility] Serum or plasma albumin/glob ulin mass ratioOrdered By: Maryam Ac on 04-14-2023 Albumin/Globulin [Mass ratio] 2.0 {ratio} [facility] Serum or plasma anion gap de terminationOrdered By: Maryam Ac on 04-14-2023 Anion gap [Moles/Vol] 10.2 mmol/L 6.0-15.0 Fi [facility] Sodium [Moles/volume] in Ser um or PlasmaOrdered By: Maryam Ac on 04-14-2023 Sodium [Moles/Vol] 139 mmol/L 136-145 [facility] Specific gravity Auto test s trip (U) [Rel density]Ordered By: Maryam Ac on 04-14-2023 Specific gravity (U) [Rel density] 1.009 1.001-1.030 [facility] Squamous epithelial cells de tection in urine sediment by light microscopyOrdered By: Maryam Ac on 04-14-2023 Epithelial cells.squamous LM Ql (Urine sed) 1-2 [HPF] 0-2 [facility] Urea nitrogen [Mass/volume] in Serum or PlasmaOrdered By: Maryam Ac on 04-14-2023 Urea nitrogen [Mass/Vol] 8 mg/dL 7-25 [facility] Urine Cultureon 04-14-2023 Bacteria identified Cx Nom (U) 75,000 colonies/ml mixed bacterial skin contaminants 2 Days PERFORMED BY: [place] [address] PATHOLOGIST [employer]PERATIONS MANAGER NEO JOSEPH M.D. [facility] Comment on above: Performed By: #### C UU, CBC, ADDONUAPLUS, CMP, LIPASE, POLLO #### [address] Bacteria identified Cx Nom (U) [employer] Other Urine bacteria detection by automated methodOrdered By: Maryam Ac on 04-14-2023 Bacteria Auto Ql (U) None seen None Seen [facility] Urine clarity by refractomet ry automatedOrdered By: Maryam Ac on 04-14-2023 Clarity Refractometry automated (U) Clear Clear [facility] Urine culture routineOrdered By: Maryam Ac on 04-14-2023 Bacteria identified Cx Nom (U) 2 Days [facility] Urine glucose measurement by automated test strip (mass/volume)Ordered By: Maryam Ac on 04-14-2023 Glucose Auto test strip (U) [Mass/Vol] Normal mg/dL Normal [facility] Urine hemoglobin detection b y automated test stripOrdered By: Maryam Ac on 04-14-2023 Hemoglobin Auto test strip Ql (U) Negative Negative [facility] Urine leukocyte esterase det ection by automated test stripOrdered By: Maryam Ac on 04-14-2023 Leukocyte esterase Auto test strip Ql (U) 3+ Negative [facility] Urobilinogen Auto test strip (U) [Mass/Vol]Ordered By: Maryam Ac on 04-14-2023 Urobilinogen (U) [Mass/Vol] Normal mg/dL Normal [facility] WBC Auto (Bld) [#/Vol]Ordere d By: Maryam Ac on 06-01-2023 WBC (Bld) [#/Vol] 8.2 10*3/uL 3.8-11.6 [facility] pH Auto test strip (U)Ordere d By: Maryam Ac on 04-14-2023 pH (U) 7.0 [pH] 5.0-9.0 [facility] Albumin [Mass/volume] in Ser um or PlasmaOrdered By: Maryam Ac on 12-29-2022 Albumin [Mass/Vol] 4.2 g/dL 3.2-5.5 [facility] Basophils Auto (Bld) [#/Vol] Ordered By: Maryam Ac on 12-29-2022 Basophils (Bld) [#/Vol] 0.0 10*3/uL 0.0-0.2 [facility] Basophils/100 WBC Auto (Bld) Ordered By: Maryam Ac on 12-29-2022 Basophils/100 WBC (Bld) 0.5 % . F [facility] CT biopsyOrdered By: Maryam gallagher on 12-29-2022 Transferrin [Mass/Vol] 310 mg/dL 180-380 [facility] Complete Blood Count Auto Di ffon 12-29-2022 Basophils (Bld) [#/Vol] 0.109312762 10*3/uL Normal 0.0-0.2 10*3/uL [employer] Other Basophils/100 WBC (Bld) 0.500 % . % [employer] Other Eosinophils (Bld) [#/Vol] 0.382623605 10*3/uL Normal 0.0-0.45 10*3/uL [employer] Other Eosinophils/100 WBC (Bld) 1.600 % . % [employer] Other Erythrocyte distribution width (RBC) [Ratio] 13.000 % Normal 11.9-15.3 % [employer] Other Hematocrit (Bld) [Volume fraction] 41.800 % Normal 34.0-46.4 % [employer] Other Hemoglobin (Bld) [Mass/Vol] 14.823744 g/dL Normal 11.8-15.4 g/dL [employer] Other Lymphocytes (Bld) [#/Vol] 1.160817897 10*3/uL Normal 1.00-4.8 10*3/uL [employer] Other Lymphocytes/100 WBC (Bld) 23.800 % . % [employer] Other MCH (RBC) [Entitic mass] 27.9000 pg Normal 24.7-34.3 p g [employer] Other MCV (RBC) [Entitic vol] 83.2000 fL Normal 80-100 fL N [facility] [employer] Other Monocytes (Bld) [#/Vol] 0.042375072 10*3/uL Normal 0.0-0.8 10*3/uL [employer] Other Monocytes/100 WBC (Bld) 6.700 % . % [facility] [employer] Other Neutrophils (Bld) [#/Vol] 5.426854350 10*3/uL Normal 1.8-7.7 10*3/uL [employer] Other Neutrophils/100 WBC (Bld) 67.400 % . % [employer] Other Platelet mean volume (Bld) [Entitic vol] 8.6000 fL Normal 6.3-10.7 fL [employer] Other WBC (Bld) [#/Vol] 7.060956287 10*3/uL Normal 3.8 -11.6 10*3/uL [employer] Other Complete Blood Count Auto Diff 7.5 10*3/uL Normal 3.8-11.6 10*3/uL [employer] Other Complete Blood Count Auto Diff 33.6 g/dL Normal 32.0-35.0 g/dL [employer] Other Complete Blood Count Auto Diff 0.0 /100{WBC} Normal 0-0.5 /100{WBC} [employer] Other Basophils (Bld) [#/Vol] 0.0 10*3/uL Normal 0.0-0.2 [facility] Comment on above: Order Comment: Reaso n for Exam Microcytosis Result Comment: PERF ORMED BY: [place] [address] PATHOLOGIST [employer]ATIONAL [employer]PERATIONS MANAGER NEO JOSEPH M.D. Performed By: #### F ER, TSH3, CBC, CMP, FE and TIBC #### [facility] [address] [place] [address] [place] Basophils/100 WBC (Bld) 0.5 % Normal . F [facility] Comment on above: Order Comment: Reaso n for Exam Microcytosis Performed By: #### F ER, TSH3, CBC, CMP, FE and TIBC #### [facility] [address] [place] [address] [place] Eosinophils (Bld) [#/Vol] 0.1 10*3/uL Normal 0.0-0.45 [facility] Comment on above: Order Comment: Reaso n for Exam Microcytosis Performed By: #### F ER, TSH3, CBC, CMP, FE and TIBC #### [facility] [address] [place] [address] [place] Eosinophils/100 WBC (Bld) 1.6 % Normal . [facility] Comment on above: Order Comment: Reaso n for Exam Microcytosis Performed By: #### F ER, TSH3, CBC, CMP, FE and TIBC #### [facility] [address] Erythrocyte distribution width (RBC) [Ratio] 13.0 % Normal 11.9-15.3 [facility] Comment on above: Order Comment: Reaso n for Exam Microcytosis Performed By: #### F ER, TSH3, CBC, CMP, FE and TIBC #### [facility] [address] [place] [address] Hematocrit (Bld) [Volume fraction] 41.8 % Normal 34.0-46.4 [facility] Comment on above: Order Comment: Reaso n for Exam Microcytosis Performed By: #### F ER, TSH3, CBC, CMP, FE and TIBC #### [address] Hemoglobin (Bld) [Mass/Vol] 14.0 g/dL Normal 11.8-15.4 [facility] Comment on above: Order Comment: Reaso n for Exam Microcytosis Performed By: #### F ER, TSH3, CBC, CMP, FE and TIBC #### [address] Lymphocytes (Bld) [#/Vol] 1.8 10*3/uL Normal 1.00-4.8 [facility] Comment on above: Order Comment: Reaso n for Exam Microcytosis Performed By: #### F ER, TSH3, CBC, CMP, FE and TIBC #### [address] Lymphocytes/100 WBC (Bld) 23.8 % Normal . [facility] Comment on above: Order Comment: Reaso n for Exam Microcytosis Performed By: #### F ER, TSH3, CBC, CMP, FE and TIBC #### [address] MCH (RBC) [Entitic mass] 27.9 pg Normal 24.7-34.3 [facility] Comment on above: Order Comment: Reaso n for Exam Microcytosis Performed By: #### F ER, TSH3, CBC, CMP, FE and TIBC #### [address] MCV (RBC) [Entitic vol] 83.2 fL Normal 80-100 F [facility] Comment on above: Order Comment: Reaso n for Exam Microcytosis Performed By: #### F ER, TSH3, CBC, CMP, FE and TIBC #### [address] Mean Corpuscular HGB Conc 33.6 g/dL Normal 32.0-35.0 [facility] Comment on above: Order Comment: Reaso n for Exam Microcytosis Performed By: #### F ER, TSH3, CBC, CMP, FE and TIBC #### [facility] [address] [place] [address] [place] Monocytes (Bld) [#/Vol] 0.5 10*3/uL Normal 0.0-0.8 [facility] Comment on above: Order Comment: Reaso n for Exam Microcytosis Performed By: #### F ER, TSH3, CBC, CMP, FE and TIBC #### [facility] [address] Monocytes/100 WBC (Bld) 6.7 % Normal . F [facility] Comment on above: Order Comment: Reaso n for Exam Microcytosis Performed By: #### F ER, TSH3, CBC, CMP, FE and TIBC #### [facility] [address] Neutrophils (Bld) [#/Vol] 5.1 10*3/uL Normal 1.8-7.7 [facility] Comment on above: Order Comment: Reaso n for Exam Microcytosis Performed By: #### F ER, TSH3, CBC, CMP, FE and TIBC #### [facility] [address] Neutrophils/100 WBC (Bld) 67.4 % Normal . [facility] Comment on above: Order Comment: Reaso n for Exam Microcytosis Performed By: #### F ER, TSH3, CBC, CMP, FE and TIBC #### [facility] [address] [place] [address] [place] NRBC% 0.0 /100{WBC} Normal 0-0.5 [facility] Comment on above: Order Comment: Reaso n for Exam Microcytosis Performed By: #### F ER, TSH3, CBC, CMP, FE and TIBC #### [facility] [address] Platelet mean volume (Bld) [Entitic vol] 8.6 fL Normal 6.3-10.7 [facility] Comment on above: Order Comment: Reaso n for Exam Microcytosis Performed By: #### F ER, TSH3, CBC, CMP, FE and TIBC #### [facility] [address] Platelets (Bld) [#/Vol] 316 10*3/uL Normal 150-450 [facility] Comment on above: Order Comment: Reaso n for Exam Microcytosis Performed By: #### F ER, TSH3, CBC, CMP, FE and TIBC #### [facility] [address] RBC (Bld) [#/Vol] 5.02 10*6/uL High 3.60-5.00 [facility] Comment on above: Order Comment: Reaso n for Exam Microcytosis Performed By: #### F ER, TSH3, CBC, CMP, FE and TIBC #### [facility] [address] WBC (Bld) [#/Vol] 7.5 10*3/uL Normal 3.8-11.6 [facility] Comment on above: Order Comment: Reaso n for Exam Microcytosis Performed By: #### F ER, TSH3, CBC, CMP, FE and TIBC #### [facility] [address] Comprehensive Metabolic Pane andree 12-29-2022 Albumin [Mass/Vol] 4.307017 g/dL Normal 3.2-5.5 g/dL N [facility] [employer] Other Bilirubin [Mass/Vol] 0.9470958 mg/dL Normal 0.3- 1.2 mg/dL [employer] Other Calcium [Mass/Vol] 9.3972393 mg/dL Normal 8.2-10 .2 mg/dL [employer] Other CO2 [Moles/Vol] 26.71356287 mmol/L Normal 22.0-3 0.0 mmol/L [employer] Other Creatinine [Mass/Vol] 0.43153582 mg/dL Normal 0. 44-1.03 mg/dL [employer] Other Potassium [Moles/Vol] 4.77609747 mmol/L Normal 3 .5-5.1 mmol/L [employer] Other Protein [Mass/Vol] 6.862825 g/dL Normal 6.1-7.9 g/dL [employer] Other Comprehensive Metabolic Panel > 60 [employer] Other Comprehensive Metabolic Panel 2.3 g/dL [employer] Other Albumin [Mass/Vol] 4.2 g/dL Normal 3.2-5.5 [facility] Comment on above: Order Comment: Reaso n for Exam Other alf (current) drug therapy Reason for Exam Microcytosis Reason for Exam Fatigue Performed By: #### F ER, TSH3, CBC, CMP, FE and TIBC #### [facility] [address] Albumin/Globulin [Mass ratio] 1.8 {ratio} Normal [facility] Comment on above: Order Comment: Reaso n for Exam Other manager terminal (current) drug therapy Reason for Exam Microcytosis Reason for Exam Fatigue Performed By: #### F ER, TSH3, CBC, CMP, FE and TIBC #### [facility] [address] [place] [address] [facility] ALP [Catalytic activity/Vol] 75 U/L Normal 32-92 [facility] Comment on above: Order Comment: Reaso n for Exam Other manager terminal (current) drug therapy Reason for Exam Microcytosis Reason for Exam Fatigue Performed By: #### F ER, TSH3, CBC, CMP, FE and TIBC #### [facility] [address] [place] [id number] [place] ALT [Catalytic activity/Vol] 21 U/L Normal 10-60 [employer] Other Comment on above: Order Comment: Reaso n for Exam Other manager terminal (current) drug therapy Reason for Exam Microcytosis Reason for Exam Fatigue Performed By: #### F ER, TSH3, CBC, CMP, FE and TIBC #### [facility] [address] Anion gap [Moles/Vol] 9.7 mmol/L Normal 6.0-15.0 [facility] Comment on above: Order Comment: Reaso n for Exam Other alf (current) drug therapy Reason for Exam Microcytosis Reason for Exam Fatigue Performed By: #### F ER, TSH3, CBC, CMP, FE and TIBC #### [facility] [address] AST [Catalytic activity/Vol] 16 U/L Normal 10-42 [facility] Comment on above: Order Comment: Reaso n for Exam Other manager terminal (current) drug therapy Reason for Exam Microcytosis Reason for Exam Fatigue Performed By: #### F ER, TSH3, CBC, CMP, FE and TIBC #### [facility] [address] Bilirubin [Mass/Vol] 0.5 mg/dL Normal 0.3-1.[address] [facility] Comment on above: Order Comment: Reaso n for Exam Other alf (current) drug therapy Reason for Exam Microcytosis Reason for Exam Fatigue Performed By: #### F ER, TSH3, CBC, CMP, FE and TIBC #### [facility] [address] Calcium [Mass/Vol] 9.7 mg/dL Normal 8.2-10.2 [facility] Comment on above: Order Comment: Reaso n for Exam Other alf (current) drug therapy Reason for Exam Microcytosis Reason for Exam Fatigue Performed By: #### F ER, TSH3, CBC, CMP, FE and TIBC #### [facility] [address] Chloride [Moles/Vol] 107 mmol/L Normal 95-[address] [facility] Comment on above: Order Comment: Reaso n for Exam Other alf (current) drug therapy Reason for Exam Microcytosis Reason for Exam Fatigue Performed By: #### F ER, TSH3, CBC, CMP, FE and TIBC #### [facility] [address] CO2 [Moles/Vol] 26.5 mmol/L Normal 22.0-30.0 [facility] Comment on above: Order Comment: Reaso n for Exam Other manager terminal (current) drug therapy Reason for Exam Microcytosis Reason for Exam Fatigue Performed By: #### F ER, TSH3, CBC, CMP, FE and TIBC #### [facility] [address] [place] [address] Creatinine [Mass/Vol] 0.65 mg/dL Normal 0.44-1.03 [facility] Comment on above: Order Comment: Reaso n for Exam Other manager terminal (current) drug therapy Reason for Exam Microcytosis Reason for Exam Fatigue Performed By: #### F ER, TSH3, CBC, CMP, FE and TIBC #### [facility] [address] [place] [address] Estimated GFR ( Ailin > 60 [facility] Comment on above: Order Comment: Reaso n for Exam Other manager terminal (current) drug therapy Reason for Exam Microcytosis Reason for Exam Fatigue Result Comment: GFR estimated reference range: According to KDOQI guidelines, <60 ml/min/1.73m2 is sufficient to diagnose a patient with chronic kidney disease. Performed By: #### F ER, TSH3, CBC, CMP, FE and TIBC #### [facility] [address] [place] [address] Estimated GFR (Non- Am > 60 [facility] Comment on above: Order Comment: Reaso n for Exam Other alf (current) drug therapy Reason for Exam Microcytosis Reason for Exam Fatigue Performed By: #### F ER, TSH3, CBC, CMP, FE and TIBC #### [facility] [address] [place] [address] Globulin (S) [Mass/Vol] 2.3 g/dL Normal [facility] Comment on above: Order Comment: Reaso n for Exam Other alf (current) drug therapy Reason for Exam Microcytosis Reason for Exam Fatigue Performed By: #### F ER, TSH3, CBC, CMP, FE and TIBC #### [facility] [address] Glucose [Mass/Vol] 91 mg/dL Normal 70-100 [facility] Comment on above: Order Comment: Reaso n for Exam Other alf (current) drug therapy Reason for Exam Microcytosis Reason for Exam Fatigue Result Comment: [facility] Glucose Reference Range is dependent on time and content of last meal. Glucose of more than 200 mg/dL in a nonstressed, ambulatory subject supports the diagnosis of Diabetes Mellitus. ADA recommended reference range Performed By: #### F ER, TSH3, CBC, CMP, FE and TIBC #### [facility] [address] Potassium [Moles/Vol] 4.2 mmol/L Normal 3.5-5.1 [facility] Comment on above: Order Comment: Reaso n for Exam Other manager terminal (current) drug therapy Reason for Exam Microcytosis Reason for Exam Fatigue Performed By: #### F ER, TSH3, CBC, CMP, FE and TIBC #### [facility] [address] Protein [Mass/Vol] 6.5 g/dL Normal 6.1-7.9 [facility] Comment on above: Order Comment: Reaso n for Exam Other manager terminal (current) drug therapy Reason for Exam Microcytosis Reason for Exam Fatigue Performed By: #### F ER, TSH3, CBC, CMP, FE and TIBC #### [facility] [address] Sodium [Moles/Vol] 139 mmol/L Normal 136-146 [facility] Comment on above: Order Comment: Reaso n for Exam Other alf (current) drug therapy Reason for Exam Microcytosis Reason for Exam Fatigue Performed By: #### F ER, TSH3, CBC, CMP, FE and TIBC #### [facility] [address] [place] [address] [place] Urea nitrogen [Mass/Vol] 10 mg/dL Normal 9-23 [facility] Comment on above: Order Comment: Reaso n for Exam Other alf (current) drug therapy Reason for Exam Microcytosis Reason for Exam Fatigue Performed By: #### F ER, TSH3, CBC, CMP, FE and TIBC #### [facility] [address] [place] [address] [place] Creatinine and Glomerular fi ltration rate.predicted panel (S/P/Bld)Ordered By: Maryam Ac on 12-29-2022 Creatinine [Mass/Vol] 0.65 mg/dL 0.44-1.03 [facility] Eosinophils Auto (Bld) [#/Vo l]Ordered By: Maryam Ac on 12-29-2022 Eosinophils (Bld) [#/Vol] 0.1 10*3/uL 0.0-0.45 [facility] Eosinophils/100 WBC Auto (Bl d)Ordered By: Maryam Ac on 12-29-2022 Eosinophils/100 WBC (Bld) 1.6 % . [facility] Erythrocyte distribution wid th Auto (RBC) [Ratio]Ordered By: Maryam Ac on 12-29-2022 Erythrocyte distribution width (RBC) [Ratio] 13.0 % 11.9-15.3 [facility] Erythrocytes [#/volume] in B lood by Automated countOrdered By: Maryam Ac on 12-29-2022 RBC (Bld) [#/Vol] 5.02 10*6/uL High 3.60-5.00 [facility] Estimated glomerular filtrat ion rate (GFR) non- AmericanOrdered By: Maryam Ac on 12-29-2022 GFR/1.73 sq M.predicted among non-blacks MDRD (S/P/Bld) [Vol rate/Area] > 60 mL/Min [facility] Ferritinon 12-29-2022 Ferritin [Mass/Vol] 29.1545090 ng/mL Normal 11-3 06.8 ng/mL [employer] Other Ferritin [Mass/Vol] 29.8 ng/mL Normal 11-306.8 [facility] Comment on above: Order Comment: Reaso n for Exam Abdominal pain Name Collection Type:: Clean-Voided Midstream Performed By: #### C UU, CBC, ADDONUAPLUS, CMP, LIPASE, POLOL #### [facility] [address] [place] [id number] [place] Ferritin [Mass/volume] in Se rum or PlasmaOrdered By: Maryam Ac on 12-29-2022 Ferritin [Mass/Vol] 29.8 ng/mL 11-306.8 [facility] Globulin Calc (S) [Mass/Vol] Ordered By: Maryam Ac on 12-29-2022 Globulin (S) [Mass/Vol] 2.3 g/dL F [facility] Hematocrit Auto (Bld) [Volum e fraction]Ordered By: Maryam Ac on 12-29-2022 Hematocrit (Bld) [Volume fraction] 41.8 % 34.0-46.4 [facility] Hemoglobin [Mass/volume] in BloodOrdered By: Maryam Ac on 12-29-2022 Hemoglobin (Bld) [Mass/Vol] 14.0 g/dL 11.8-15.4 [facility] Iron [Mass/volume] in Serum or PlasmaOrdered By: Maryam Ac on 12-29-2022 Iron [Mass/Vol] 109 ug/dL Normal 40-150 ug/dL [facility] Iron and TIBC Profileon 12-15 Iron and TIBC Profile 25.1 % Normal 20-50 % [facility] [employer] Other % Iron Saturation 25.1 % Normal 20-50 [facility] Comment on above: Order Comment: Reaso n for Exam Abdominal pain Name Collection Type:: Clean-Voided Midstream Performed By: #### C UU, CBC, ADDONUAPLUS, CMP, LIPASE, POLLO #### [facility] [address] Iron [Mass/Vol] 109 ug/dL Normal 40-150 [facility] Comment on above: Order Comment: Reaso n for Exam Abdominal pain Name Collection Type:: Clean-Voided Midstream Performed By: #### C UU, CBC, ADDONUAPLUS, CMP, LIPASE, POLLO #### [facility] [address] Total Iron Binding Capacity 434 ug/dL Normal 255-450 [facility] Comment on above: Order Comment: Reaso n for Exam Abdominal pain Name Collection Type:: Clean-Voided Midstream Performed By: #### C UU, CBC, ADDONUAPLUS, CMP, LIPASE, POLLO #### [facility] [address] Transferrin [Mass/Vol] 310 mg/dL Normal 180-380 [facility] Comment on above: Order Comment: Reaso n for Exam Abdominal pain Name Collection Type:: Clean-Voided Midstream Performed By: #### C UU, CBC, ADDONUAPLUS, CMP, LIPASE, POLLO #### [facility] [address] Iron binding capacity [Mass/ volume] in Serum or PlasmaOrdered By: Maryam cA on 12-29-2022 Iron binding capacity [Mass/Vol] 434 ug/dL 255-450 [facility] Iron saturation [Mass Fracti on] in Serum or PlasmaOrdered By: Maryam Ac on 12-29-2022 Iron saturation [Mass fraction] 25.1 % 20-50 [facility] Leukocytes [#/volume] correc aylin for nucleated erythrocytes in Blood by Automated counOrdered By: Maryam Ac on 12-29-2022 WBC corrected for nucl RBC Auto (Bld) [#/Vol] 7.5 10*3/uL 3.8-11.6 [facility] Lymphocytes Auto (Bld) [#/Vo l]Ordered By: Maryam Ac on 12-29-2022 Lymphocytes (Bld) [#/Vol] 1.8 10*3/uL 1.00-4.8 [facility] Lymphocytes/100 WBC Auto (Bl d)Ordered By: Maryam Ac on 12-29-2022 Lymphocytes/100 WBC (Bld) 23.8 % . [facility] MCH Auto (RBC) [Entitic mass ]Ordered By: Maryam Ac on 12-29-2022 MCH (RBC) [Entitic mass] 27.9 pg 24.7-34.3 [facility] MCHC Auto (RBC) [Mass/Vol]Or dered By: Maryam Ac on 12-29-2022 MCHC (RBC) [Mass/Vol] 33.6 g/dL 32.0-35.0 [facility] MCV Auto (RBC) [Entitic vol] Ordered By: Maryam Ac on 12-29-2022 MCV (RBC) [Entitic vol] 83.2 fL 80-100 F [facility] Monocytes Auto (Bld) [#/Vol] Ordered By: Maryam Ac on 12-29-2022 Monocytes (Bld) [#/Vol] 0.5 10*3/uL 0.0-0.8 [facility] Monocytes/100 WBC Auto (Bld) Ordered By: Maryam Ac on 12-29-2022 Monocytes/100 WBC (Bld) 6.7 % . F [facility] Neutrophils Auto (Bld) [#/Vo l]Ordered By: Maryam Ac on 12-29-2022 Neutrophils (Bld) [#/Vol] 5.1 10*3/uL 1.8-7.7 [facility] Neutrophils/100 WBC Auto (Bl d)Ordered By: Maryam Ac on 12-29-2022 Neutrophils/100 WBC (Bld) 67.4 % . [facility] No Panel InformationOrdered By: Maryam Ac on 12-29-2022 Estimated GFR () > 60 mL/Min [facility] Comment on above: GFR estimated refere nce range: According to KDOQI guidelines, <60 ml/min/1.73m2 is sufficient to diagnose a patient with chronic kidney disease. Pharmacy Creatinine Clearance (Chem N/A [facility] Nucleated erythrocytes [Pres ence] in Blood by Automated countOrdered By: Maryam Ac on 12-29-2022 Nucleated RBC Auto Ql (Bld) 0.0 /100{WBC} 0-0.5 [facility] Platelet mean volume Auto (B ld) [Entitic vol]Ordered By: Maryam Ac on 12-29-2022 Platelet mean volume (Bld) [Entitic vol] 8.6 fL 6.3-10.7 [facility] Platelets [#/volume] in Bloo d by Automated countOrdered By: Maryam Ac on 12-29-2022 Platelets (Bld) [#/Vol] 316 10*3/uL Normal 150- 450 10*3/uL [facility] Protein [Mass/volume] in Ser um or PlasmaOrdered By: Maryam Ac on 12-29-2022 Protein [Mass/Vol] 6.5 g/dL 6.1-7.9 [facility] Serum or plasma alanine centeno otransferase measurement without P-5'-P (enzymatic activiOrdered By: Maryam Ac on 12-29-2022 ALT No additional P-5'-P [Catalytic activity/Vol] 21 U/L 10-60 [facility] Serum or plasma albumin/glob ulin mass ratioOrdered By: Maryam Ac on 12-29-2022 Albumin/Globulin [Mass ratio] 1.8 {ratio} [facility] Serum or plasma alkaline ivelisse sphatase measurement (enzymatic activity/volume)Ordered By: Maryam Ac on 12-29-2022 ALP [Catalytic activity/Vol] 75 U/L Normal 32-92 U/L [facility] Serum or plasma anion gap de terminationOrdered By: Maryam Ac on 12-29-2022 Anion gap [Moles/Vol] 9.7 mmol/L 6.0-15.0 [facility] Serum or plasma aspartate am inotransferase measurement (enzymatic activity/volume)Ordered By: Maryam Ac on 12-29-2022 AST [Catalytic activity/Vol] 16 U/L Normal 10-42 U/L [facility] Serum or plasma calcium mary urement (mass/volume)Ordered By: Maryam Ac on 12-29-2022 Calcium [Mass/Vol] 9.7 mg/dL 8.2-10.2 [facility] Serum or plasma chloride lisa surement (moles/volume)Ordered By: Maryam Ac on 12-29-2022 Chloride [Moles/Vol] 107 mmol/L Normal 95-114 mmol/L [facility] Serum or plasma glucose mary urement (mass/volume)Ordered By: Maryam Ac on 12-29-2022 Glucose [Mass/Vol] 91 mg/dL Normal 70-100 mg/dL [facility] Comment on above: ADA recommended refe rence rangeRandom Glucose Reference Range is dependent on time and content of last meal. Glucose of more than 200 mg/dL in a nonstressed, ambulatory subject supports the diagnosis of Diabetes Mellitus. Serum or plasma potassium me asurement (moles/volume)Ordered By: Maryam Ac on 12-29-2022 Potassium [Moles/Vol] 4.2 mmol/L 3.5-5.1 [facility] Serum or plasma sodium measu rement (moles/volume)Ordered By: Maryam Ac on 12-29-2022 Sodium [Moles/Vol] 139 mmol/L Normal 136-146 mmol/L [facility] Serum or plasma total biliru bin measurement (mass/volume)Ordered By: Maryam Ac on 12-29-2022 Bilirubin [Mass/Vol] 0.5 mg/dL 0.3-1.[address] [facility] Serum or plasma total carbon dioxide measurement (moles/volume)Ordered By: Maryam Ac on 12-29-2022 CO2 [Moles/Vol] 26.5 mmol/L 22.0-30.0 [facility] Serum or plasma urea nitroge n measurement (mass/volume)Ordered By: Maryam Ac on 12-29-2022 Urea nitrogen [Mass/Vol] 10 mg/dL Normal 9-23 mg/dL [facility] TSH DL <= 0.005 mIU/L QnOrde red By: Maryam Ac on 12-29-2022 TSH Qn 2.11 m[IU]/L 0.45-5.33 [facility] Thyroid Stimulating Hormoneo n 12-29-2022 TSH Qn 2.98056209324 m[IU]/L Normal 0.45-5.33 u[iU]/mL [employer] Other TSH Qn 2.11 m[IU]/L Normal 0.45-5.33 [facility] Comment on above: Order Comment: Reaso n for Exam Abdominal pain Name Collection Type:: Clean-Voided Midstream Result Comment: PERF ORMED BY: [place] [address] PATHOLOGIST [employer]ATIONS MANAGER NEO JOSEPH M.D. Performed By: #### C UU, CBC, ADDONUAPLUS, CMP, LIPASE, POLLO #### [address] WBC Auto (Bld) [#/Vol]Ordere d By: Maryam Ac on 12-29-2022 WBC (Bld) [#/Vol] 7.5 10*3/uL 3.8-11.[address] [facility] [address] abdomen pelvis wo conon 0 06-08-2022 CT abdomen pelvis wo con [facility] [employer] Other CT abdomen pelvis wo con [facility] [employer] Other CT abdomen pelvis wo con [address] [facility] [employer] [place] [address] [employer] [facility] [address] abdomen pelvis wo con CT Scan Report [employer] Other CT abdomen pelvis wo con Signed [employer] Other CT abdomen pelvis wo con Patient: Tish Woo MR#: [id number] [employer] Other CT abdomen pelvis wo con [address] [facility] [address] abdomen pelvis wo con : 1995 Acct:[id number] [employer] Other CT abdomen pelvis wo con Age/Sex: 27 / F ADM Date: 06/08/[address] [facility] [address] abdomen pelvis wo con Loc: CT Room: T ype: [facility] [employer] Other CT abdomen pelvis wo con Attending Dr: Carl Ac DO [employer] Other CT abdomen pelvis wo con Copies to: Micha Ac, [employer] Other CT abdomen pelvis wo con Ordering Provid er: Maryam Ac, [employer] Other CT abdomen pelvis wo con Date of Service : 06/08/[address] [facility] [address] abdomen pelvis wo con CT/CT abdomen pelvis wo con: R10.[address] [facility] [address] abdomen pelvis wo con CT abdomen and pelvis withoutcontrast [employer] Other CT abdomen pelvis wo con TECHNIQUE: Axia l imaging with 2-D reconstruction. . The CT exam was performed using one or more [employer] Other CT abdomen pelvis wo con the following d ose reduction techniques: Automated exposure control, adjustment of the MA and/or Kv [employer] Other CT abdomen pelvis wo con according to patient size, or use of the iterative reconstruction technique. [employer] Other CT abdomen pelvis wo con COMPARISON:08/25/[address] [facility] [address] abdomen pelvis wo con History: No LEF T kidney stones. Possible RIGHT kidney stone. May have passed [address] [employer] Other [address] abdomen pelvis wo con Lung bases are unremarkable. [employer] Other CT abdomen pelvis wo con No hepatic mass or intrahepatic biliary ductal dilatation identified. Hepatic steatosis [employer] Other CT abdomen pelvis wo con identified. [employer] Other CT abdomen pelvis wo con No gallbladder abnormality identified. [employer] Other CT abdomen pelvis wo con No extrahepatic biliary ductal dilatation identified. [employer] Other CT abdomen pelvis wo con There is no splenomegaly or splenic mass identified. [employer] Other CT abdomen pelvis wo con No pancreatic m ass or ductal dilatation identified. [employer] Other CT abdomen pelvis wo con The adrenal gla nds are unremarkable. [employer] Other CT abdomen pelvis wo con No nephrolithia sis or obstructive uropathy is identified. [employer] Other CT abdomen pelvis wo con No abdominal ao rtic aneurysm identified. No significant retroperitoneal abnormalities identified. [employer] Other CT abdomen pelvis wo con The small bowel loops are nondistended. [employer] Other CT abdomen pelvis wo con The appendix is normal. [employer] Other CT abdomen pelvis wo con There is no col onic wall thickening, distention or pericolonic inflammatory changes. [employer] Other CT abdomen pelvis wo con Urinary bladder is unremarkable. [employer] Other CT abdomen pelvis wo con Reproductive structures are unremarkable. [employer] Other CT abdomen pelvis wo con No free intraperitoneal air or fluid is identified. 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 [employer] Other CT abdomen pelvis wo con No subcutaneous soft tissue abnormality identified. [employer] Other CT abdomen pelvis wo con 012 CT/CT abdomen pelvis wo con [employer] Other CT abdomen pelvis wo con IMPRESSION: No acute findings. Hepatic steatosis. No nephrolithiasis or obstructive uropathy. [employer] Other CT abdomen pelvis wo con Impression dict ated by: Tin Duran M.D.06/08/2022 10:58 AM [facility] [facility] [employer] Other CT abdomen pelvis wo con Dictation Locat ion: [facility] [employer] Other CT abdomen pelvis wo con Transcribed By: PWS 06/08/[address] [facility] [address] abdomen pelvis wo con Dictated By: Tin Duran DO 06/08/[address] [facility] [address] abdomen pelvis wo con Signed By: [employer] Other CT abdomen pelvis wo con 06/08/22 7890 [employer] Other Urine culture routineOrdered By: Maryam Ac on 05-26-2022 Bacteria identified Cx Nom (U) bacilli - 2 Days [facility] XR KUBon 05-25-2022 XR KUB [facility] [employer] Other XR KUB [facility] [employer] Other XR KUB [address] [place] [address] [employer] [place] [address] [employer] Other XR KUB XRay Report [employer] Other XR KUB Signed [employer] Other XR KUB Patient: Tish Woo MR#: [id number] [employer] Other XR KUB 99 [employer] Other XR KUB : 1995 Acct:[id number] [employer] Other XR KUB Age/Sex: 27 / F ADM Date: 05/25/22 [employer] Other XR KUB Loc: XD Room: Type: [facility] [employer] Other XR KUB Attending Dr: Maryam Ac DO [employer] Other XR KUB Copies to: Maryam Ac, [employer] Other XR KUB Ordering Provider: Maryam Ac DO [employer] Other XR KUB Date of Service: 05/25/22 [employer] Other XR KUB XR/XR KUB: R10.9,R31.9 [employer] Other XR KUB KUB [employer] Other XR KUB COMPARISON: None [employer] Other XR KUB HISTORY: LEFT flank pain hematuria. [employer] Other XR KUB Nondistended air-filled small bowel loops identified. [employer] Other XR KUB Pelvic vascular calcifications identified. Potential 3 mm distal LEFT ureteral stone identified. [employer] Other XR KUB No soft tissue mass seen. [employer] Other XR KUB Bony structures are intact. [employer] Other XR KUB XR/XR KUB [employer] Other XR KUB IMPRESSION: Potential 3 mm distal LEFT ureteral stone. [employer] Other XR KUB Impression dictated by: Tin Duran M.D.05/25/2022 5:32 PM [employer] Other XR KUB Dictation Location: [place] [address] [employer] Other XR KUB Transcribed By: PWS 05/25/22 173 [employer] Other XR KUB Dictated By: Tin Duran DO 05/25/22 [facility] [employer] Other XR KUB Signed By: [employer] Other XR KUB 05/25/22 173 [employer] Other Automated epithelial cells c ount in urine sediment (number/area)Ordered By: Maryam Ac on 05-24-2022 Epithelial cells Auto (Urine sed) [#/Area] 0-1 [HPF] 0-2 [facility] Automated erythrocytes count in urine sediment (number/area)Ordered By: Maryam Ac on 05-24-2022 RBC Auto (Urine sed) [#/Area] 3-4 [HPF] 0-4 [facility] Automated leukocytes count i n urine sediment (number/area)Ordered By: Maryam Ac on 05-24-2022 WBC Auto (Urine sed) [#/Area] 10-19 [HPF] 0-4 [facility] Automated urine hyaline cast s count (number/volume)Ordered By: Maryam Ac on 05-24-2022 Hyaline casts Auto (U) [#/Vol] None seen [LPF] 0-1 [facility] Bilirubin Test strip Ql (U)O rdered By: Maryam Ac on 05-24-2022 Bilirubin Ql (U) Negative Negative [facility] Color Auto (U)Ordered By: Brad Ac on 05-24-2022 Color (U) Yellow Yellow [facility] Ketones Auto test strip (U) [Mass/Vol]Ordered By: Maryam Ac on 05-24-2022 Ketones (U) [Mass/Vol] Negative Negative [facility] Nitrite Test strip Ql (U)Ord ered By: Maryam Ac on 05-24-2022 Nitrite Ql (U) Negative Negative [facility] Protein Auto test strip (U) [Mass/Vol]Ordered By: Maryam Ac on 05-24-2022 Protein (U) [Mass/Vol] Negative Negative [facility] Specific gravity Auto test s trip (U) [Rel density]Ordered By: Maryam Ac on 05-24-2022 Specific gravity (U) [Rel density] 1.004 1.001-1.030 [facility] Urine bacteria detection by automated methodOrdered By: Maryam Ac on 05-24-2022 Bacteria Auto Ql (U) Rare None Seen [facility] Urine clarity by refractomet ry automatedOrdered By: Maryam Ac on 05-24-2022 Clarity Refractometry automated (U) Clear Clear [facility] Urine glucose measurement by automated test strip (mass/volume)Ordered By: Maryam cA on 05-24-2022 Glucose Auto test strip (U) [Mass/Vol] Normal mg/dL Normal [facility] Urine hemoglobin detection b y automated test stripOrdered By: Maryam Ac on 05-24-2022 Hemoglobin Auto test strip Ql (U) 3+ Negative [facility] Urine leukocyte esterase det ection by automated test stripOrdered By: Maryam Ac on 05-24-2022 Leukocyte esterase Auto test strip Ql (U) 4+ Negative [facility] Urobilinogen Auto test strip (U) [Mass/Vol]Ordered By: Maryam Ac on 05-24-2022 Urobilinogen (U) [Mass/Vol] Normal mg/dL Normal [facility] pH Auto test strip (U)Ordere d By: Maryam Ac on 05-24-2022 pH (U) 6.5 [pH] 5.0-9.0 [facility] Progress Noteson 02-20-2021 Progress Notes Encounter Department: [facility] Progress Notes by PAZ Jeffrey at 02/20/2021 12:45 PM Author: PAZ JeffreyService: -Author Type: Nurse Practitioner Filed: 02/20/2021 1:40 PMEncounter Date: 02/20/2021tatus: Signed Operator: PAZ Jeffrey (Nurse Practitioner) Subjective Subjective: Patient ID: Tish Woo is a 26 y.o. female. Chief Complaint Patient presents with -Other WRIST PAIN POSSIBLY DISLOCATED SWELLING AND PAINFUL X THIS MORNING HPI 26yoF patient presents with c/o R wrist pain today. She had her arm in between crossed legs this am and twisted it. Emma a pop or possible dislocation and thinks it may have slid back into place. When she was younger she saw on ortho who said she has joints that pop out of place but hasn't seen ortho in many years. No h/o EDS. Associated s/s: swelling initially, better now. Tried OTC: tylenol. Relieving factors: rx. Aggravating factors: moving wrist does still hurt. No n/t, loss/change in sensation, pallor, current deformity, FOOSH injury, etc. Review of Systems Constitutional: Negative for chills and fever. Respiratory: Negative for shortness of breath. Cardiovascular: Negative for chest pain. Musculoskeletal: Positive for arthralgias and myalgias. Skin: Negative for color change, pallor, rash and wound. Neurological: Negative for weakness and numbness. Objective Objective: Physical Exam Vitals and nursing note reviewed. Constitutional: General: She is not in acute distress. Appearance: She is well-developed. She is not ill-appearing, toxic-appearing or diaphoretic. Cardiovascular: Rate and Rhythm: Normal rate. Pulmonary: Effort: Pulmonary effort is normal. Musculoskeletal: Right elbow: Normal range of motion. No tenderness. Right forearm: No tenderness or bony tenderness. Right wrist: Swelling (slightly langston compared to left side), tenderness and bony tenderness present. No snuff box tenderness. Normal range of motion. Normal pulse. Right hand: Tenderness and bony tenderness present. Normal range of motion. Normal sensation. Normal capillary refill. Normal pulse. Arms: Hands: Skin: General: Skin is warm and dry. Capillary Refill: Capillary refill takes less than 2 seconds. Comments: Cap refill < 2 sec Neurological: Mental Status: She is alert and oriented to person, place, and time. Comments: N/V intact distal digits Psychiatric: Mood and Affect: Mood normal. Speech: Speech normal. Behavior: Behavior normal. BP 124/69 Pulse 69 Temp 97.6 ?F (36.4 ?C) Resp 12 Ht 5' 5 (1.651 m) Wt 240 lb (108.9 kg) LMP 2021 SpO2 99% BMI 39.94 kg/m? Hand: FINDINGS: 3 views of the Right hand and 4 views right wrist are submitted for review. No acute fracture or dislocation is seen. No radiopaque foreign bodies or soft tissue calcifications seen. The joint spaces are maintained. IMPRESSION: 1. No evidence for acute findings. Wrist: FINDINGS: 3 views of the Right hand and 4 views right wrist are submitted for review. No acute fracture or dislocation is seen. No radiopaque foreign bodies or soft tissue calcifications seen. The joint spaces are maintained. IMPRESSION: 1. No evidence for acute findings. Assessment Assessment and Plan: ICD-10-CM 1.Right wrist sprain, initial encounter S63.501AWrist Cock-up Splint 2.Right hand pain M79.641 XR-HAND RIGHT 3 OR MORE VIEWS 3.Right wrist injury, initial encounter S69.91XA XR-WRIST RIGHT 3 OR MORE VIEWS All pertinent side effects, risks, benefits and precautions of suggested treatments were discussed in detail. Ms. Woo understands and agrees with above treatment plan. Rest, ice, elevation, wrist splint applied. APAP or IBU prn pain (denied rx). ER for dislocation/deformi ty, cold or pale digits/skin, redness or new swelling, numbness or tingling, increased pain, etc. Advised pt if pain continues since she is here for college and does not have a PCP locally she can FU with ortho - cards provided for [employer] [facility] and [employer] offices. Normal [facility] XR-HAND RIGHT 3 OR MORE VIEW Son 02-20-2021 XR-HAND RIGHT 3 OR MORE VIEWS PROCEDURE: XR-HAND RIGHT 3 OR MORE VIEWS, XR-WRIST RIGHT 3 OR MORE VIEWS DATE OF EXAM: 02/20/2021 1:20 PM DEMOGRAPHICS: 26 years old Female INDICATION: M79.641: Pain in right hand History: rigth thumb and lateral wrist pain after a fell this morning. Number of Series/Images: 3. COMPARISON: No existing relevant imaging study corresponding to the same anatomical region is available. FINDINGS: 3 views of the Right hand and 4 views right wrist are submitted for review. No acute fracture or dislocation is seen. No radiopaque foreign bodies or soft tissue calcifications seen. The joint spaces are maintained. IMPRESSION: IMPRESSION: 1. No evidence for acute findings. This dictation was created with voice recognition software. While attempts have been made to review the dictation as it is transcribed, on occasion the spoken word can be misinterpreted by the technology leading to omissions or inappropriate words, phrases or sentences. Electronically Signed by: Yaw Pérez, 02/20/2021 1:26 PM [facility] XR-WRIST RIGHT 3 OR MORE VIE WSon 02-20-2021 XR-WRIST RIGHT 3 OR MORE VIEWS PROCEDURE: XR-HAND RIGHT 3 OR MORE VIEWS, XR-WRIST RIGHT 3 OR MORE VIEWS DATE OF EXAM: 02/20/2021 1:20 PM DEMOGRAPHICS: 26 years old Female INDICATION: M79.641: Pain in right hand History: rigth thumb and lateral wrist pain after a fell this morning. Number of Series/Images: 3. COMPARISON: No existing relevant imaging study corresponding to the same anatomical region is available. FINDINGS: 3 views of the Right hand and 4 views right wrist are submitted for review. No acute fracture or dislocation is seen. No radiopaque foreign bodies or soft tissue calcifications seen. The joint spaces are maintained. IMPRESSION: IMPRESSION: 1. No evidence for acute findings. This dictation was created with voice recognition software. While attempts have been made to review the dictation as it is transcribed, on occasion the spoken word can be misinterpreted by the technology leading to omissions or inappropriate words, phrases or sentences. Electronically Signed by: Yaw Pérez 02/20/2021 1:26 PM [facility] Covid-19 PCR (CVDTBH)on Covid-19 NOT DETECTED Normal NOT DETECTED [facility] Comment on above: Result Comment: This test is not yet approved or cleared by the [place] FDA. When there are no FDA-approved or cleared tests available, and other criteria are met, FDA can make tests available under an emergency access mechanism called an Emergency Use Authorization (EUA). The EUA for this test is supported by the [employer] Advisor of Health and Human Service's (HHS's) declaration that circumstances exist to justify the emergency use of in vitro diagnostics for the detection and/or diagnosis of the virus that causes COVID-19. This EUA will remain in effect (meaning this test can be used) for the duration of the COVID-19 declaration justifying emergency of IVDs, unless it is terminated or revoked by FDA (after which the test may no longer be used). Performed By: #### C VDTB #### [facility] [address] [place] [id number] Sedrick Belcher EUA Statement SEE BELOW Normal [facility] Comment on above: Result Comment: This test is not yet approved or cleared by the [place] FDA. When there are no FDA-approved or cleared tests available, and other criteria are met, FDA can make tests available under an emergency access mechanism called an Emergency Use Authorization (EUA). The EUA for this test is supported by the [employer] Advisor of Health and Human Service?s (HHS?s) declaration that circumstances exist to justify the emergency use of in vitro diagnostics for the detection and/or diagnosis of the virus that causes COVID-19. This EUA will remain in effect (meaning this test can be used) for the duration of the COVID-19 declaration justifying emergency of IVDs, unless it is terminated or revoked by FDA (after which the test may no longer be used). When diagnostic testing is negative, the possibility of a false negative should be considered in the context of a patients recent exposures and the presence of clinical signs and symptoms consistent with SARS-CoV-2. Performed By: #### C VDTBH #### [facility] [address] [id number] Sedrick Belcher Vital Signs Date Time Vital Sign Value Performing Clinician Facility 11-01-2023 08:10-0500 Body height 163.83 cm Maryam Ac Other [employer] Other 11-01-2023 08:10-0500 Body mass index (BMI) [Ratio] 38.7 kg/m2 Maryam Ac Other [employer] Other 11-01-2023 08:10-0500 Body temperature 98.6 [degF] Maryam Ac Other [employer] Other 11-01-2023 08:10-0500 Body weight 103.87 kg Maryam Ac Other [employer] Other 11-01-2023 08:10-0500 Diastolic blood pressure 76 mm[Hg] Maryam Ac Other [employer] Other 11-01-2023 08:10-0500 Respiratory rate 18 /min Maryam Ac Other [employer] Other 11-01-2023 08:10-0500 SaO2% (BldA) [Mass fraction] 98 % Maryam Ac Other [employer] Other 11-01-2023 08:10-0500 Systolic blood pressure 122 mm[Hg] Maryam Ac Other [employer] Other 01-28-2023 09:10-0400 Body height 163.83 cm Maryam Ac Other [employer] Other 01-28-2023 09:10-0400 Body mass index (BMI) [Ratio] 39.2 kg/m2 Maryam Ac Other [employer] Other 01-28-2023 09:10-0400 Body temperature 97.4 [degF] Maryam Ac Other [employer] Other 01-28-2023 09:10-0400 Body weight 105.24 kg Maryam Ac Other [employer] Other 01-28-2023 09:10-0400 Diastolic blood pressure 82 mm[Hg] Maryam Ac Other [employer] Other 01-28-2023 09:10-0400 Respiratory rate 18 /min Maryam Ac Other [employer] Other 01-28-2023 09:10-0400 SaO2% (BldA) [Mass fraction] 99 % Maryam Ac Other [employer] Other 01-28-2023 09:10-0400 Systolic blood pressure 126 mm[Hg] Maryam Ac Other [employer] Other 10-29-2022 12:15-0500 Body height 163.83 cm Femi Cordoba Other [employer] Other 10-29-2022 12:15-0500 Body mass index (BMI) [Ratio] 41.74 kg/m2 Femi Cordoba Other [employer] Other 10-29-2022 12:15-0500 Body weight 112.04 kg Femi Cordoba Other [employer] Other 10-29-2022 12:15-0500 Diastolic blood pressure 89 mm[Hg] Femi Cordoba Other [employer] Other 10-29-2022 12:15-0500 Systolic blood pressure 138 mm[Hg] Femi Cordoba Other [employer] Other 09-16-2022 14:30-0400 Body height 163.83 cm Femi Cordoba Other [employer] Other 09-16-2022 14:30-0400 Body mass index (BMI) [Ratio] 41.91 kg/m2 Femi Cordoba Other [employer] Other 09-16-2022 14:30-0400 Body weight 112.49 kg Femi Cordoba Other [employer] Other 04-29-2022 12:10-0400 Body height 163.83 cm Maryam Ac Other [employer] Other 04-29-2022 12:10-0400 Body mass index (BMI) [Ratio] 44.86 kg/m2 Maryam Ac Other [employer] Other 04-29-2022 12:10-0400 Body temperature 97 [degF] Maryam Ac Other [employer] Other 04-29-2022 12:10-0400 Body weight 120.43 kg Maryam Ac Other [employer] Other 04-29-2022 12:10-0400 Diastolic blood pressure 86 mm[Hg] Maryam Ac Other [employer] Other 04-29-2022 12:10-0400 Respiratory rate 18 /min Maryam Ac Other [employer] Other 04-29-2022 12:10-0400 SaO2% (BldA) [Mass fraction] 98 % Maryam Ac Other [employer] Other 04-29-2022 12:10-0400 Systolic blood pressure 124 mm[Hg] Maryam Ac Other [employer] Other 10-27-2021 15:40-0500 Body height 163.83 cm Maryam Ac Other [employer] Other 10-27-2021 15:40-0500 Body mass index (BMI) [Ratio] 43.68 kg/m2 Maryam Ac Other [employer] Other 10-27-2021 15:40-0500 Body temperature 97.8 [degF] Maryam Ac Other [employer] Other 10-27-2021 15:40-0500 Body weight 117.26 kg Maryam Ac Other [employer] Other 10-27-2021 15:40-0500 Diastolic blood pressure 82 mm[Hg] Maryam Ac Other [employer] Other 10-27-2021 15:40-0500 Respiratory rate 18 /min Maryam Ac Other [employer] Other 10-27-2021 15:40-0500 SaO2% (BldA) [Mass fraction] 99 % Maryam Ac Other [employer] Other 10-27-2021 15:40-0500 Systolic blood pressure 118 mm[Hg] Maryam Ac Other [employer] Other 09-16-2021 10:10-0400 Body height 163.83 cm Maryam Ac Other [employer] Other 09-16-2021 10:10-0400 Body mass index (BMI) [Ratio] 44.44 kg/m2 Maryam Ac Other [employer] Other 09-16-2021 10:10-0400 Body temperature 97.7 [degF] Maryam Ac Other [employer] Other 09-16-2021 10:10-0400 Body weight 119.3 kg Maryam Ac Other [employer] Other 09-16-2021 10:10-0400 Diastolic blood pressure 98 mm[Hg] Maryam Ac Other [employer] Other 09-16-2021 10:10-0400 Respiratory rate 18 /min Maryam Ac Other [employer] Other 09-16-2021 10:10-0400 SaO2% (BldA) [Mass fraction] 98 % Maryam Ac Other [employer] Other 09-16-2021 10:10-0400 Systolic blood pressure 158 mm[Hg] Maryam Ac Other [employer] Other Encounters Encounter Date Encounter Type Care Provider Facility Start: 11-28-2023 End: 11-28-2023 ambulatory TEDDY FÁTIMA Not Available Start: 11-08-2023 Telephone encounter Maryam Ac [facility] [place] [facility] Start: 11-08-2023 End: 11-08-2023 ambulatory DO Maryam Ac Work Phone: [facility] Work Phone: Start: 11-08-2023 End: 11-08-2023 Patient encounter procedure DO Maryam Ac Work Phone: [facility] [place] Work Phone: Start: 11-03-2023 End: 11-03-2023 ambulatory Maryam Ac Facility:[facility] Start: 11-03-2023 End: 11-03-2023 ambulatory DO Maryam Ac Work Phone: [facility] Work Phone: Start: 11-03-2023 End: 11-03-2023 Patient encounter procedure DO Maryam Ac Work Phone: [facility]Ul[facility] [place] Work Phone: Start: 11-01-2023 End: 11-01-2023 ambulatory Maryam Ac Other [employer] Other Start: 11-01-2023 Office outpatient visit 15 minutes Maryam Ac [facility] Start: 10-30-2023 End: 10-31-2023 ambulatory ZEESHAN DONOHUE Not Available Start: 10-30-2023 End: 10-30-2023 ambulatory ZEESHAN DONOHUE Not Available Start: 09-26-2023 End: 09-26-2023 ambulatory Maryam Ac Other [employer] Other Start: 09-26-2023 Telephone encounter Maryam Ac [facility] Start: 08-19-2023 End: 08-19-2023 ambulatory Maryam Ac Other [employer] Other Start: 08-19-2023 Telephone encounter Maryam Ac [facility] Start: 04-19-2023 End: 04-19-2023 ambulatory Maryam Ac Facility:[facility] Start: 04-19-2023 End: 04-19-2023 ambulatory DO Maryam Ac Work Phone: [facility] Work Phone: Start: 04-19-2023 End: 04-19-2023 Patient encounter procedure DO Maryam Ac Work Phone: [facility] [place] Work Phone: Start: 04-14-2023 Telephone encounter Maryam Ac [facility] Start: 04-14-2023 End: 04-14-2023 ambulatory Maryam Ac Facility:[facility] Start: 04-14-2023 End: 04-14-2023 ambulatory DO Maryam Ac Work Phone: [facility] Work Phone: Start: 04-14-2023 End: 04-14-2023 Patient encounter procedure DO Maryam Ac Work Phone: [facility] [place] Work Phone: Start: 01-28-2023 End: 01-28-2023 ambulatory Maryam Ac Other [employer] Other Start: 01-28-2023 Office outpatient visit 15 minutes Maryam Ac [facility] Start: 12-29-2022 Telephone encounter Maryam Ac [facility] Start: 12-29-2022 End: 12-29-2022 ambulatory Maryam Ac Facility:[facility] Start: 12-29-2022 End: 12-29-2022 ambulatory DO Maryam Ac Work Phone: [facility] Work Phone: Start: 12-29-2022 End: 12-29-2022 Patient encounter procedure DO Maryam Ac Work Phone: [facility] [place] Work Phone: Start: 12-28-2022 End: 12-28-2022 ambulatory Maryam Ac Other [employer] Other Start: 12-28-2022 Telephone encounter Maryam Ac [facility] [place] Start: 11-09-2022 End: 11-09-2022 ambulatory Femi Cordoba Other [employer] Other Start: 11-09-2022 Telephone encounter Femi SOL [employer] Start: 11-01-2022 End: 11-01-2022 ambulatory Dahiana Garcia Other [employer] Other Start: 11-01-2022 Telephone encounter Dahiana Canales [facility] Start: 10-29-2022 End: 10-29-2022 ambulatory Femi Cordoba Other [employer] Other Start: 10-29-2022 Patient encounter procedure Femi Cordoba [facility] Start: 09-16-2022 End: 09-16-2022 ambulatory Femi Cordoba Other [employer] Other Start: 09-16-2022 [facility] visit new patient Femi Cordoba [facility] Start: 06-08-2022 End: 06-08-2022 Patient encounter procedure DO Maryam Ac Work Phone: [facility]-CT Scan [facility] [place] Start: 05-25-2022 End: 05-25-2022 Patient encounter procedure DO Maryam Ac Work Phone: [facility]XRay [facility] [place] Start: 05-25-2022 End: 05-25-2022 ambulatory Maryam Ac Other [employer] Other Start: 05-25-2022 Telephone encounter Maryam Ac [facility] [place] Start: 05-24-2022 End: 05-24-2022 Departed Referred DO Maryam Ac Work Phone: [facility] [place] Start: 04-29-2022 End: 04-29-2022 ambulatory Maryam Ac Other [employer] Other Start: 04-29-2022 Office outpatient visit 15 minutes Maryam Ac [facility] [place] Start: 12-14-2021 End: 12-14-2021 ambulatory Maryam Ac Other [employer] Other Start: 12-14-2021 Telephone encounter Maryam Ac [facility] [place] Start: 10-27-2021 End: 10-27-2021 ambulatory Maryam Ac Other [employer] Other Start: 10-27-2021 Office outpatient visit 15 minutes Maryam Ac [facility] Start: 09-16-2021 End: 09-16-2021 ambulatory Maryam Ac Other [employer] Other Start: 09-16-2021 Office outpatient visit 15 minutes Maryam Ac [facility] Start: 10-17-2020 End: 10-18-2020 Patient encounter procedure MARYAM AC Facility: Procedures Date Procedure Procedure Detail Performing Clinician Start: 11-03-2023 Ultrasonography of b ilateral kidneys DO Maryam Ac Work Phone: Start: 04-19-2023 US scan of gallbladder DO Maryam Ac Work Phone: Start: 04-14-2023 Urine culture DO Maryam Ac Work Phone: Start: 06-08-2022 CT of abdomen and pe lvis without contrast DO Maryam Ac Work Phone: Start: 05-25-2022 Diagnostic radiograp hy of abdomen DO Maryam Ac Work Phone: Urine culture DO Maryam farnsworth Work Phone: Plan of Treatment Date Care Activity Detail Author Start: 11-08-2023 Bacteria identified in Urine by Culture [facility] Start: 04-14-2023 Bacteria identified in Urine by Culture Urine Culture [facility] Immunizations Immunization Date Immunization Notes Care Provider Fa josselyn 08-30-2021 influenza, seasonal, injectable Maryam Ac Other [employer] Other 08-28-2021 COVID-19 Vaccine Pfi zer - Documentation Purposes Only Maryam Ac Other [employer] Other 01-02-2021 COVID-19 Vaccine Pfi zer - Documentation Purposes Only Maryam Arguetajulien Other [employer] Other 12-12-2020 COVID-19 Vaccine Pfi zer - Documentation Purposes Only Maryam Arguetajulien Other [employer] Other Payers Date Payer Category Payer Self-pay [id number] 2021 Private Health Insurance [id number] 1997 Unknown [id number] 2.16.84 [id number] 1997 Unknown [id number] 2.16.84 [id number] 1997 Unknown [id number] 1997 Unknown [id number] 1959 Private Health Insurance [id number] Unknown [id number] 2.16.8 [id number] Unknown [facility] [id number] Unknown [id number] 2.16.8 [id number] Unknown [id number] 2.16.8 [id number] Unknown [id number] 2.16.8 [id number] Unknown [id number] 2.16.8 [id number] Unknown [id number] 2.16.8 [id number] Social History Date Type Detail Facility Unknown if ever smoked [employer] Other Sex Assigned At Sex Assigned At Bir th [employer] Other Start: 1995 Sex Assigned At Female F [facility] Clinical Notes 09-16-2021 to 11-01-2023 Note Date & Type Note Facility 11-01-2023 Evaluation note Encounter Date Diagnosis Assessment Notes Oct, Hematuria (ICD-10 - R31.9) She voices that she was seen at on Tuesday10-30-23 for evaluation and there was alot of blood in her urine. She has had a kidney stone in the past that she passed on her own. An x-ray was done on Tuesday but this did not show a stone but she voices that the physician said that he did not trust the x-ray so he felt she had a kidney stone. He wanted to treat her with an antibiotic due to bacteria in the urine and for a kidney stone, he felt there was more going on. She was treated with Cipro and Flomax. She is having side effects from the Flomax, her sinuses are dry and she would like to stop the Flomax. I did advise her that if this becomes recurrent she should see see a urologist for evaluation. She voices that all she could see was blood with urination when she was at on 10/30/23 but as soon as she got home her urine was completely normal again, she also suspects she may have had a kidney stone. She had a CT scan in 2021 and nothing was found, she voices that she had already passed the stone by the time insurance approved the CT scan. I will provide her with an order to have for a KUB x-ray, if she has pain that is not ovulation related she can have this done and call for results to see if she has a stone. She voices that she still has stabbing pain and this is similar to the last kidney stone. I want her to get an ultrasound of the kidneys, ureter and bladder to be done now. She will finish the Cipro on 11/03/23 so next week (11/08/23) she needs to have a repeat urinalysis done to be sure that her urine is not infected. Call for results. Oct, Asthma (ICD-10 - J45.909) She continues to use and benefit from the above medications. She will call when she runs low on medication for refills. Oct, Weight loss (ICD-10 - R63.4) She voices that she normally fluctuates between 219-223. She has lost a total of 50 pounds by cutting out gluten. She found that gluten causes her migraines, when she does not eat gluten she does not have migraines. When checked her TSH was normal at 1.841. Free T4 was 0.90. Oct, Menstrual pain (ICD-10 - N94.6) She voices that she has pain prior to ovulating. She voices that it is so painful it feels like a kidney stone, but since she had gynecological surgery she has not had this as bad the last couple of months. 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 She had been working out but then the pain would become so severe she would not be able to work out because it occurs every other week of the month. Dr. Mejia did not find endometriosis as he expected when he did the surgery. The pain is more frequent on the right side. Oct, Anxiety (ICD-10 - F41.9) Continue to follow with specialist and above medication. Oct, Insomnia (ICD-10 - G47.00) Continue with above medication daily as directed. Oct, Other She presents with lab work that Dr. Mejia ordered and her employee lab work results from the fall (2022). I did independently review these results with her today. Her total cholesterol was 150. HDL was 54. LDL was 83. Triglycerides were 66. VLDL was 13. Her uric acid level was 6.2. Glucose was 88. HgA1C was normal at 4.7. HGB was 12.9. Iron was 56. She has been monitoring her blood pressure on her own and presents with readings. She has found that when her readings are high they were explained by stress or a migraine. She had some systolic readings of 135 or 140. If she rests and takes it a second time the level is generally normal. Her blood pressure in the office today is normal. I did review her readings she presents with today and she is told that these are good. [employer] Other 11-13-2023 Evaluation note* Encounter Date Diagnosis Assessment Notes Treatment Notes Treatment Clinical Notes Sep, Anxiety (ICD-10 - F41.9) [employer] Other 10-06-2023 Evaluation note* Encounter Date Diagnosis Assessment Notes Treatment Notes Treatment Clinical Notes Aug, Body aches (ICD-10 - R52) She voices that she has body aches and a sore throat, her symptoms are similar to when she had COVID-19 last month. I will treat her with Prednisone to help decrease inflammation and calm things down. Aug, Shortness of breath (ICD-10 - R06.02) She voices that it is difficult at times for her to take a deep breath in when she breaths. She has not had to use her inhaler but has it available to use if needed. Aug, Dysphagia (ICD-10 - R13.10) She voices that her throat hurts at this time. I am going to cover her with an antibiotic that would treat strep throat or anything bacterial she may be fighting. She is in agreement and guidance is given on how to take the medication. Medication will last five additional days after she has finished the medication. I asked her to call me next week with how she is doing. Aug, COVID-19 (ICD-10 - U07.1) resolved She had COVID-19 almost one month ago but feels that all of her symptoms from that illness did resolve. Aug, Other 11:42 AM - 11:4 8 AM She will be having a procedure with Dr. Mejia in a couple weeks. [employer] Other 06-01-2023 Evaluation note* Encounter Date Diagnosis Assessment Notes Treatment Notes Treatment Clinical Notes Apr, Abdominal pain (ICD-10 - R10.9) She voices that she has been in pain mostly since Tuesday04/08/23 but it is not as bad right now as it was when she woke up this morning. She did not want to spend the money on the co-pay for the ER, or she would have gone to the ER. She had a gallbladder ultrasound done in [address] scan of the abdomen done in May 2022. This pain is different from she had in the past, the pain is worse, and she describes it as sharp and stabbing. The pain radiates to her right shoulder, side and back. We discussed that this could be gallbladder related. If she had a gallstone and had a gallbladder attack this should resolve within an hour to an hour and a half. She voices that she had pain that woke her up on 04/08/23 and it was gone by 04/11/23 but yesterday 04/13/23 she ate chicken nuggets and the pain started back again. I discussed with her that the concern is that a gallstone could be blocking the drainage duct and if this occurs it could be life threatening. To be sure she does not need emergent treatment she should have lab work drawn as soon as possible. She is agreeable to this. If the lab work is normal then she can have the gallbladder ultrasound done. If her eyes turn yellow or the pain worsens or is unrelenting then she is to go to the ER for evaluation. Anything that comes from an animal will make her pain worse, she should eat bland foods. Apr, Other 9:36 AM - 9:45 AM [employer] Other 06-01-2023 Evaluation note* Encounter Date Diagnosis Assessment Notes Treatment Notes Treatment Clinical Notes Apr, Abdominal pain (ICD-10 - R10.9) [employer] Other 03-17-2023 Evaluation note* Encounter Date Diagnosis Assessment Notes Treatment Notes Treatment Clinical Notes Jan, Anxiety (ICD-10 - F41.9) She had a meeting with her psychiatrist a couple of weeks ago and was given an extra dose of Wellbutrin (generic). She has one friend that she hangs out with alot but has found that recently she does not want to hang out as much as she did before. She has noticed that she is not as hungry as she was and feels this may be mood related. She is working on her masters degree in social work and this keeps her very busy. Jan, Asthma (ICD-10 - J45.909) She is in need of new prescriptions for above medications. She does continue to use and benefit from the medicine. Jan, Weight loss (ICD-10 - R63.4) She is losing weight by eating a gluten free diet. She is eating mostly one meal per day and sometimes will have a protein shake. She voices that just recently she has not had an appetite which has been concerning to her. She has found new foods that she likes but recently does not even want to eat these. We discussed that this decrease in appetite could be mood related as she has found that she does not want to be out/social like she was before. Her TSH was 2.11 when checked in Dec (2022). For now she is going to continue to monitor her appetite/weight loss and will let me know if she wants any further work up. Since she stopped eating gluten her diarrhea stopped. Jan, Fatty liver (ICD-10 - K76.0) Weight loss is the best thing she can do for this issue. She did see Dr. Cordoba for evaluation, she voices that he advised her to return in three years, and he would repeat testing. Dr. Cordoba referred her to weight management but her insurance did not cover this. Her liver studies were good when checked in Dec (2022). Jan, Microcytosis (ICD-10 - R71.8) In Dec (2022) her Iron was 109. Ferritin is 29.8. HGB was 14.0. She has been taking a Flinestone multivitamin with Iron in it. She can continue with this. Jan, Other She checks her blood pressure on her own and it is in the 120's over 70s. She admits to feeling light-headed at times. She had been going to the gym but since she has not been feeling good she stopped going. I encouraged her to continue working with her psychiatrist, aiming towards more in person socialization. Anticipate that she will eventually be able to get back to the gym. [employer] Other 02-14-2023 Evaluation note* Encounter Date Diagnosis Assessment Notes Treatment Notes Treatment Clinical Notes Dec, Fatigue (ICD-10 - R53.83) Dec, Microcytosis (ICD-10 - R71.8) Dec, Other manager terminal (current) drug therapy (ICD-10 - Z79.899) [employer] Other 12-16-2022 Evaluation note* Encounter Date Diagnosis Assessment Notes Treatment Notes Treatment Clinical Notes Oct, Fatty liver (ICD-10 - K76.0) REPEAT FIBROSCAN IN 3 YRS Oct, Liver fibrosis (ICD-10 - K74.00) [employer] Other 11-03-2022 Evaluation note* Encounter Date Diagnosis Assessment Notes Treatment Notes Treatment Clinical Notes Sep, Fatty liver (ICD-10 - K76.0) PATIENT IS ADVISED WE WILL ORDER SOME TESTING AT THIS TIME. PATIENT IS ENCOURAGED DIET AND EXERCISE AND WATCHING RISK FACTORS. Sep, Diarrhea (ICD-10 - R19.7) [employer] Other 07-12-2022 Evaluation note* Encounter Date Diagnosis Assessment Notes Treatment Notes Treatment Clinical Notes May, Flank pain (ICD-10 - R10.9) May, Hematuria (ICD-10 - R31.9) May, Abdominal pain (ICD-10 - R10.9) [employer] Other 06-16-2022 Evaluation note* Encounter Date Diagnosis Assessment Notes Treatment Notes Treatment Clinical Notes Apr, Migraine (ICD-10 - G43.909) She voices that she found that her migraines improved after she got glasses. She does still get them if she is stressed. If she eats mushrooms at certain resturaunts she will get a migraine as well so she does try to avoid eating these. She did accidentally eat mushrooms a month ago and her mouth became itchy but she was able to take them out of her mouth quickly and was fine. She does continue to take the above medication daily as directed. I will provide her with a new prescription today. Apr, Asthma (ICD-10 - J45.909) She voices that she only uses the inhaler as needed but does use the Singulair daily. I did provide her with a refill of Singulair today. Apr, Anxiety (ICD-10 - F41.9) She only uses the Hydroxyzine as needed but not very often. She does use the Wellbutrin daily as directed. [facility] this time and he prescribes the Wellbutrin for her. Apr, Weight loss (ICD-10 - R63.4) She has lost two pounds. She voices that her weight has been all over the place since her aunt . She was close to her aunt and it was unexpected, she and her mother were her primary caretakers when she passed in Oct (2020). She voices that things are finally starting to wrap up so she is doing better. [employer] Other 01-31-2022 Evaluation note* Encounter Date Diagnosis Assessment Notes Treatment Notes Treatment Clinical Notes Nov, Migraine (ICD-10 - G43.909) [employer] Other 12-14-2021 Evaluation note* Encounter Date Diagnosis Assessment Notes Treatment Notes Treatment Clinical Notes Oct, Migraine (ICD-10 - G43.909) She does continue to take the Inderal daily as directed and has not had any migraines recently. She was able to come off the Excedrin since last seen. She is going to return to the restaurant where they cook foods with mushrooms to see if she gets a migraine. We discussed the risks versus benefits of staying on the Inderal. For now, she is agreeable to staying on the medication. She is going to call me and let me know what happens after she eats at the restaurant. If she does decide to come off the Inderal we will wean her off the medication. She should keep me posted by the end of November (2021). Oct, Elevated blood pressure (ICD-10 - R03.0) Blood pressure is controlled. Recommend she continue to work on weight loss. If she comes off the Inderal we will need to watch her blood pressure closely. Oct, Weight loss (ICD-10 - R63.4) She has lost weight since last seen, since April (2020) she has lost 9 pounds. She voices that she began hiking in her free time recently. She is encouraged to continue with the hiking and working on weight loss for her overall health. Oct, Anxiety (ICD-10 - F41.9) The Inderal has made her feel mellow and her thoughts are not racing all the time. She does feel somewhat too mellow and is not sure if that is such a thing or not. For now she is going to continue with the Inderal and see how she does. She continues to follow with a psychiatrist through telehealth appointments. [employer] Other 11-03-2021 Evaluation note* Encounter Date Diagnosis Assessment Notes Treatment Notes Treatment Clinical Notes Sep, Migraine (ICD-10 - G43.909) We discussed that Excedrin can cause withdrawal headaches and this can become a cycle. She was waking up with headaches before she was taking Excedrin. She had a piercing done in the past and had not had any issue with migraines. In the past she found a relation with certain foods that would cause a migraine. She develops auras prior to getting a migraine and will lose vision in one eye. Other times she will wake with the headache. We discussed that there are new medications used for migraines that can be prescribed by a neurologist. Acute treatments were discussed. We discussed starting a migraine preventative medication which would help to prevent a migraine and lower her blood pressure. Together we decided referring her to a neurologist for evaluation and to discuss medications. I did recommend that she stop using Excedrin as soon as she can. She should only use Excedrin four times per month. Will start her on Inderal LA. Guidance is given on how to take the medication. Side effects/risks/benefi ts of medication were reviewed. Sep, Elevated blood pressure (ICD-10 - R03.0) Her blood pressure was elevated today which makes me wonder if her blood pressure is what is causing her migraine/headaches. She did wake up today with a headache but admits she took Excedrin. Her reading in the office today was 158/98 and 142/90. Excedrin could have contributed to the elevated blood pressure. I would like to start her on a medication that can help her migraines and lower her blood pressure. She may notice that her pulse is slower than she is used to. She may feel perceive this as feeling tired but this is normal. Guidance is given on how to take the medication. An EKG will be done in the office today. I did recommend that she check her blood pressure on her own at home. Guidance is given on how to check her blood pressure. Track readings. Sep, Anxiety (ICD-10 - F41.9) She voices that her stress is all over the place . Her aunt is on the liver transplant list and she and her mother are her primary caregivers. 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 She is seeing a new psychiatrist once a month through [facility]. She was switched from Effexor to Wellbutrin in June (2020) and her Wellbutrin was increased but she had side effects, she could feel her heart racing and was anxious so the dose was lowered and she has been fine. Her mood has been better. She has never had a seizure. Sep, Asthma (ICD-10 - J45.909) Provided her with a refill on ProAir today. She voices that she does not use this inhaler unless needed. She did need to use it for three days in a row recently but then was able to go without it. I did explain to her that a beta madiha can make wheezing worse, she should be aware of this. She is exercising and voices that she rarely has to use the inhaler for this. She finds that it is more environmental triggers that cause her to have to use it or scents. [employer] Other Evaluation noteNo assessment information available [facility] Work Phone: Evaluation noteNo InformationNortPottstown Hospital PISTIS Consult Other Hisnjnz general Narrative - Reported* Type Description Date Medical History seasonal/allergies/has had aller gy testing Medical History Chickenpox Medical History Headaches Medical History Asthma Medical History Fx left arm/cast Medical History Sinusitis Medical History seasonal allergies/has had aller gy testing Medical History [place] [facility] History T&A Dr. Posada Hospitalization History Asthma Attack 2006 Hospitalization History asthma attack x1 2006 [employer] Other Hisxhoo general Narrative - Reported* Type Description Date Medical History seasonal/allergies/has had aller gy testing Medical History Chickenpox Medical History Headaches Medical History Asthma Medical History Fx left arm/cast Medical History Sinusitis Medical History seasonal allergies/has had aller gy testing Medical History Left Foot and Left Ankle [place] [facility] Medical History Anxiety disorder Medical History chronic depression Surgical History T&A Dr. Posada Hospitalization History Asthma Attack 2006 Hospitalization History asthma attack x1 2006 [employer] Other History general Narrative - Reported* Type Description Date Medical History seasonal/allergies/has had aller gy testing Medical History Chickenpox Medical History Headaches Medical History Asthma Medical History Fx left arm/cast Medical History Sinusitis Medical History seasonal allergies/has had aller gy testing Medical History Left Foot and Left Ank[place] [facility] Medical History Anxiety disorder Medical History chronic depression Surgical History T&A Dr. Posada Surgical History hysteroscopy, D and C -Dr. Herman conrad 09-02-23 Hospitalization History Asthma Attack 2006 Hospitalization History asthma attack x1 2006 [employer] Other Reason for visit Narrativemed refill, discuss multiple issues, see treatment plan for further informationNort [employer] Other Summary Purpose Family History No Family History Records FoundNo Family History Records FoundNo Family History Records FoundNo Family History Records Found Advance Directives No Advanced Directives Records Found Advance Directive Response Recorded Date/ Time Advance Directives No October 12:55pm Advance Directive Response Recorded Date/ Time Advance Directives No October 11:55am Reason for Referral Reason appt pt needs cons ult to discuss migraines Diagnosis 1 Migraine (G43.909) Referral Organization [facility] Referring Provider First Name Maryam Referring Provider Last Name Shruthi Referring Provider Specialty Family Prac zehra Referred Organization [facility] Referred Address [address] [place], [place],[address] Referred Provider Specialty Neurology Referral Priority Routine General Notes Keely Elaine 09/16/2021 10:35:24 AM > [facility] referral form hard faxed with office note, med list, demographics and insurance card. pt understands she will be contacted to schedule this appt. Reason appt consult to enrrique martinez fatty liver Diagnosis 1 Flank pain (R10.9) Referral Organization [facility] Referring Provider First Name Maryam Referring Provider Last Name Shruthi Referring Provider Specialty Family Prac zehra Referred Organization [facility] Referred Provider Femi Cordoba Referred Address [address] [facility] [address] ,[place], [place],[address] Referred Provider Specialty Gastroentero logy Referral Priority Routine General Notes Keely Elaine 06/08/2022 04:05:56 PM > referral sent p2p. pt will be contacted to schedule this appt. Reason CANCELED Please sachin alejandro consult to evaluate and treat. Diagnosis 1 Fatty liver (K76.0) Referral Organization [facility] Referring Provider First Name Femi Referring Provider Last Name Beryl Referring Provider Specialty Gastroenter ology Referred Organization Unknown Facility Referred Provider Julio Hart Referred Provider Specialty Internal Med icine Referral Priority Routine General Notes Rita Traylor 1 12/30/2021 03:46:26 PM > Sent p2p with form attached. Rita Traylor 11/09/2022 12:06:00 PM > Per TE from patient her insurance does not cover this referral. She does not want to schedule at this time. TE sent to Dr. Cordoba. Closing at this time. Reason appt consult for e indio and treatment of anxiety Diagnosis 1 Anxiety (F41.9) Referral Organization [facility] Referring Provider First Name Maryam Referring Provider Last Name Shruthi Referring Provider Specialty Family Prac zehra Ref[facility] Referred Address [address] [place], [place],[address] Referred Provider Specialty Psychiatry Referral Priority Routine General Notes Keely Elaine 09/26/2023 08:59:08 AM > referral [facility]. this referral will no be followed for psychiatry Chief Complaint and Reason for Visit Chief Complaint R31.9 r10.9 r31.9 r10.9 r31.9 Chief Complaint r71.8 z79.899 Chief Complaint abd pain Chief Complaint abd pain r10.9 Chief Complaint r31.9 Chief Complaint r31.9 R31.9 Additional Source Comments INFORMATION SOURCE (unrecogn ized section and content) DATE CREATED AUTHOR 11/01/2020 [facility] DATE CREATED AUTHOR AUTHOR'S ORGANIZ ATION 02/24/2021 [facility] DATE CREATED AUTHOR AUTHOR'S ORGANIZ ATION 11/12/2023 [facility] DATE CREATED AUTHOR AUTHOR'S ORGANIZ ATION 11/28/2023 [facility] EPIC REASON FOR VISIT (unrecogniz ed section and content) migrainesrecheck migrainesre fillmigrainesCT scan resultsPATIENT HERE AT THE REQUEST OF DR AC FOR FATTY LIVER, PATIENT STATES SHE DID HAVE KIDNEY STONES AND THIS WAS FOUND AND AUNT HAD FATTY LIVER DISEASE AND SHE RECENTLY THIS YEAR AND THIS HAD ADVANCED AND WAS NEEDING A LIVER TRANSPLANT.PATIENT HERE FOR FOLLOW UP FIBROSCAN & LABSWMN CancelledREFERRAL UPDATEClinicalClinical9 month follow upabd pain/possible GB issuesClinicalsore throat, body achesreferralClinical Care Teams (unrecognized sec tion and content) Team Status: Active Member Role Status Dates Maryam Ac , Primary Care Provider Active Team Status: Inactive Member Role Status Dates Maryam Ac , Primary Care Provider, Attending Pro vider Active Goals (unrecognized section and content) Goals may be documented in a n alternate section FOR RECORDS PERTAINING TO PATIENTS WHO ARE OR HAVE BEEN ENROLLED IN A CHEMICAL DEPENDENCY/SUBSTANCEABUSE PROGRAM, SOME INFORMATION MAY BE OMITTED. This clinical summary was aggregated from multiple sources. Caution should be exercised in using it in the provision of clinical care. This summary normalizes information from multiple sources, and as a consequence, information in this document may materially change the coding, format and clinical context of patient data. In addition, data may be omitted in some cases. CLINICAL DECISIONS SHOULD BE BASED ON THE PRIMARY CLINICAL RECORDS. [email or web address] [facility]. provides no warranty or guarantee of the accuracy or completeness of information in this document.
[2023-12-02 12:09] LABS: Age Gdln ACOG Testing Note (.); IGP, rfx Aptima HPV ASCU Note (.)
== END 2023-11-28 20:46 | disposition home or self-care (01) ==
LOC: LAB 20:45
PROVIDERS: PCP Family Medicine; Visit Provider Obstetrics & Gynecology
DX: Z01.419 Encounter for gynecological examination (general) (routine) without abnormal findings (principal)
CPT/HCPCS: G0145

== ENCOUNTER 2025-05-28 15:13 | Outpatient (REF) | payer OTHER, SELFPAY ==
--- OUTSIDE RECORDS SUMMARY | 2022-01-08 04:15 | XMS_ITS | Continuity of Care Document ---
Author Organization [facility] Address [address] [place] [address] Phone Care Team Providers Care Palliative Senior Np Name Role Phone Danny Malhotra Unavailable Unavailable Procedures Procedure Date TB Read TB INTRADERMAL TEST TB INTRADERMAL TEST TB Read TB INTRADERMAL TEST Covid Testing [facility] Advance Directives Directive Yes / No Effective Date File Name No Information Encounters Encounter Description Practice Location Reason(s) For Visit Diagnoses Date Provider Providers Copied on Encounter [facility], [address] [place] [address], [id number], [place] tel:[phone] [facility] No Information [facility] Cat. [address], [place], [id number], [place]. tel:[phone] [facility], [address] [place] [address], [id number], [place] tel:[phone] [facility] Encounter for screening for respiratory tuberculosis [facility] Cat. [address], [place], [id number], [place]. tel:[phone] [facility], [address] [place] [address], [id number], [place] tel:[phone] [facility] Encounter for screening for respiratory tuberculosis [facility] Cat. [address], [place], [id number], [place]. tel:[phone] [facility], [address], [place], [id number], [place] tel:[phone] [facility] Encounter for screening for respiratory tuberculosis [facility] Cat. [address], [place], [id number], [place]. tel:[phone] [facility], [address], [place], [id number], [place] tel:[phone] [facility] Encounter for screening for other viral diseases [facility]add Cat. [address], [place], [id number], [place]. tel:[phone] Family History Family Member Type Diagnosis Age At Onset No Information Payers Payer name Insurance type Covered green party ID Authoriza tion(s) No Information Social History Type Description Quantity Date Captured Comments Alcohol Use Details Unknown Caffeine Use Details Unknown Tobacco Use Status No Information Smoking Status No Information Sex Female Sexual Orientation Straight or heterosexual Gender Identity Female Chief Complaint And Reason For Visit No Information Reason For Referral Reason For Referral No Information History Of Present Illness Encounter Date Complaint History Of Prese nt Illness No Information Functional Status Date Functional Assessmen t No Information Instructions Date Instruction Additional Infor mation No Information Assessments Type Assessment Date No Information Patient Care Teams Name Effective Dates (start - stop) Status Members No Information
--- OUTSIDE RECORDS SUMMARY | 2025-05-06 05:15 | XMS_ITS ---
Author Organization [facility] es Address [address] [place] [address] Care Team Providers Care Glaucoma Specialist Name Role Phone Kamryn Valencia Primary Care Provider REASON FOR VISIT 3 week f/u BH Encounters Encounter Location Date Provider Diagnosis [facility] [address] [place] [address] 05/06/2025 Kamryn Valencia Plan Of Treatment Next Appt Details Provider Name:Kamryn Valencia, 0 06/12/2025 10:00:00 AM, [address], [place], [address], Progress Notes * RYLAND WOOCINTHIAOB:1995 (30 yo F)Acc No.[id number]:05/06/2025 Behavioral Health Patient: FRED SHAW Appointment Provider: Maya Valencia :1995 A ge:30 Y S ex:Female Date:05/06/2025 [address] [facility] [id number] Subjective: * Chief Complaints: * 1 . 3 week f/u BH. * Medical History: Objective: * Vitals: Assessment: Plan: * Treatment: * Images: * Electronic signature of KELLY Solis on 05/28/2025 at 11:09 AM EDT Sign off status: Pending * Appointment Provider: Maya Valencia Date: 0 05/06/2025 Generated for Ashlee ng/Faxing/eTransmitting on: 0 05/28/2025 11:09 AM EDT
--- OUTSIDE RECORDS SUMMARY | 2025-05-27 05:30 | XMS_ITS ---
Author Organization [facility] es Address [address] [place] [address] Care Team Providers Care Bottom Cager Name Role Phone Kamryn Valencia Primary Care Provider REASON FOR VISIT 1 month f/u Medications Medication SIG (Take, Route, Frequency, Duration) Notes Start Date End Date Status Escitalopram Oxalate 10 MG 1 tablet Orally Once a day; Duration: 30 day(s) 05/27/2025 Active Montelukast Sodium 10 MG 1 tablet Orally Once a day Active Prazosin HCl 1 MG 1 capsule Orally twi ce a day; Duration: 30 days 09/12/2024 07/12/2025 Active ARIPiprazole 5 MG 1 tablet Orally Once a day; Duration: 30 day(s) 05/27/2025 Active Ondansetron HCl 4 MG 1 tablet Orally Once a day; Duration: 30 days As needed for nausea 06/20/2024 Active traZODone HCl 50 MG 1 tablet at bedtime as needed Orally Once a day 10/21/2023 Active busPIRone HCl 10 MG 1 tablet Orally Twic e a day; Duration: 30 days 12/16/2023 Not-Taking Encounters Encounter Location Date Provider Diagnosis [facility] [address] [place] [address] 05/27/2025 Kamryn Valencia Major depressive disorder, recurrent episode with anxious distress F33.9 Assessments Encounter Date Diagnosis (ICD Code) Assessment Notes Treatment Notes Treatment Clinical Notes Section Notes 05/27/2025 Major depressive disorder, recurrent episode with anxious distress (ICD-10 - F33.9) Recommended treatment is: FDA approved medication for this age group include Selective Serotonin Reuptake Inhibitors (SSRI) and Selective Norepinephrine Reuptake Inhibitors (SNRI). . Selective serotonin reuptake inhibitors can cause nausea, headache, upset stomach, diarrhea, constipation, anxiety, irritability, and sexual dysfunction. . Please monitor for worsening of symptoms, especially suicidal ideations or morbid thoughts, and call office and or go to the emergency department immediately. Pt does not endorse exhibiting symptoms aligning with jb. . The patient verbalizes understanding with all questions answered thoroughly and is in agreement with treatment plan. . Continue current treatment plan Patient/Guardian will call sooner if symptoms worsen. Patient understands to go to ER if needed if symptoms become severe. Crisis Intervention plan was discussed and agreed upon. Patient/Guardian will call 911 in case of emergency. Emergency contact information was provided to the patient/guardian. Plan Of Treatment Medication Medication Name Sig Start Date Stop Date Notes Escitalopram Oxalate 10 MG 1 tablet Oral ly Once a day; Duration: 30 day(s) 05/27/2025 ARIPiprazole 10 MG 1 tablet Orally Once a day 02/01/2025 ARIPiprazole 5 MG 1 tablet Orally Once a day; Duration: 30 day(s) 05/27/2025 Treatment Notes Assessment Notes Major depressive disorder, r ecurrent episode with anxious distress Recommended treatment is: FDA approved medication for this age group include Selective Serotonin Reuptake Inhibitors (SSRI) and Selective Norepinephrine Reuptake Inhibitors (SNRI). . Selective serotonin reuptake inhibitors can cause nausea, headache, upset stomach, diarrhea, constipation, anxiety, irritability, and sexual dysfunction. . Please monitor for worsening of symptoms, especially suicidal ideations or morbid thoughts, and call office and or go to the emergency department immediately. Pt does not endorse exhibiting symptoms aligning with jb. . The patient verbalizes understanding with all questions answered thoroughly and is in agreement with treatment plan. . Continue current treatment plan Patient/Guardian will call sooner if symptoms worsen. Patient understands to go to ER if needed if symptoms become severe. Crisis Intervention plan was discussed and agreed upon. Patient/Guardian will call 911 in case of emergency. Emergency contact information was provided to the patient/guardian. Next Appt Details Follow Up: 2 Weeks, Reason: Provider Name:Kamryn Valencia, Agustin 06/12/2025 10:00:00 AM, [address] [facility], [place], [address], Progress Notes * MALA WOO:1995 (30 yo F)Acc No.[id number]:05/27/2025 Behavioral Health Patient: FRED SHAW Appointment Provider: Maya Valencia :1995 A ge:30 Y S ex:Female Date:05/27/2025 Address:[address] [place], [place] [address] [place], [id number] Subjective: * Chief Complaints: * 1 month f/u * HPI: C onstitutional: Patient here for follow up and to go over Genesight results.? . Patient reports she is still feeling depressed. She states she spends a lot of time in bed, feels very tired. Genesight testing reviewed patient is indio/indio COMT. Provider explained implications and that individuals with genetype experience more anxiety/ depression, increase sensitivity to stress etc. . Provider and patient discussed treatment options. Will decrease aripiprazole to 5mg and start escitalopram 10mg daily. Depressive symptoms that have NOT significantly improved include: 1. having more interest in daily activites and interests 2. stabilized diet 3. better sleep hygiene 4. more energy during the day 5. able to focus on tasks, less inattention 6. less feelings of worthlessness and inappropriate guilt 7. decreased thoughts of suicidal ideations. . . Denies suicidal or homicidal ideation or plan. No morbid thoughts. Interpersonal issues discussed. . Support provided. . * ROS: C ONSTITUTIONAL: No fever, chills, sweats, weakness SKIN: No jaundice, rash, lesions, petechiae GASTROINTESTINAL: No nausea, vomiting, diarrhea, or GI bleeding MUSCULOSKELETAL: No muscle pain or weakness NEUROLOGIC: No headache, dizziness, numbness, or weakness . * Medical History: * Surgical History: * Hospitalization/Major Diagno stic Procedure: * Medications: T akingMontelukast Sodium 10 MG Tablet 1 tablet Orally Once a day Ondansetron HCl 4 MG Tablet 1 tablet Orally Once a day As needed for nauseaARIPiprazole 10 MG Tablet 1 tablet Orally Once a day traZODone HCl 50 MG Tablet 1 tablet at bedtime as needed Orally Once a day Prazosin HCl 1 MG Capsule 1 capsule Orally twice a day , stop date 07/12/2025Taking Montelukast Sodium 10 MG Tablet 1 tablet Orally Once a day Taking Ondansetron HCl 4 MG Tablet 1 tablet Orally Once a day As needed for nauseaTaking ARIPiprazole 10 MG Tablet 1 tablet Orally Once a day Taking traZODone HCl 50 MG Tablet 1 tablet at bedtime as needed Orally Once a day Taking Prazosin HCl 1 MG Capsule 1 capsule Orally twice a day , stop date 07/12/2025Not- Taking/PRNbusPIRone HCl 10 MG Tablet 1 tablet Orally Twice a day Not-Taking/PRN busPIRone HCl 10 MG Tablet 1 tablet Orally Twice a day Objective: * Vitals: * Examination: G eneral Examination: . MENTAL STATUS EXAM: . Appearance: Appropriately dressed and groomed, good eye contact, cooperative, pleasant Behavior/Motor Activity: Normal Gait/Station: Within normal limits Speech: Normal Mood: depressed, tired Affect: Full Thought processes/Associations: Logical and goal directed Thought Content: Non-psychotic Cognition/Attention/Memory/Concentration: Alert and oriented x 4; grossly intact attention; memory-recent/remote judged adequate by interviewer Insight: Good Judgement: Good language: Within normal limits Fund of Knowledge: Adequate . . AIMS EXAM: . AIMS Muscles of Facial Expression: None AIMS Lips and Perioral Area: None AIMS Jaw Area Involuntary Movements: None AIMS Tongue Involuntary Movements: None AIMS Upper Arms, Wrists, Hands, Fingers: None AIMS Lower Legs, Knees, Ankles, Toes: None AIMS Overall Abnormal Movement Severity: None AIMS Incapacitation Abnormal Movement: None AIMS Self Awareness of Abnormal Movement: Aware, None noted AIMS Current Teeth, Denture Problems: No AIMS Movements Disappear in Sleep: No . . Assessment: * Assessment: 1. M ajor depressive disorder, recurrent episode with anxious distress - F33.9 (Primary) ? Plan: * Treatment: * Procedure Codes: * Follow Up: 2 Weeks * Images: * Sign off status: Completed true * Appointment Provider: Maya Valencia Date: 05/27/2025 Generated for Ashlee Vale on: 05/28/2025 03:17 PM EDT History and Physical Notes * Examination Category Sub-Category Detail Notes Category Not es General Examination . MENTAL STATUS EXAM: . Appearance: Appropriately dressed and groomed, good eye contact, cooperative, pleasant Behavior/Motor Activity: Normal Gait/Station: Within normal limits Speech: Normal Mood: depressed, tired Affect: Full Thought processes/Associations: Logical and goal directed Thought Content: Non-psychotic Cognition/Attention/Memory/Con centration: Alert and oriented x 4; grossly intact attention; memory-recent/remote judged adequate by interviewer Insight: Good Judgement: Good language: Within normal limits Fund of Knowledge: Adequate . . AIMS EXAM: . AIMS Muscles of Facial Expression: None AIMS Lips and Perioral Area: None AIMS Jaw Area Involuntary Movements: None AIMS Tongue Involuntary Movements: None AIMS Upper Arms, Wrists, Hands, Fingers: None AIMS Lower Legs, Knees, Ankles, Toes: None AIMS Overall Abnormal Movement Severity: None AIMS Incapacitation Abnormal Movement: None AIMS Self Awareness of Abnormal Movement: Aware, None noted AIMS Current Teeth, Denture Problems: No AIMS Movements Disappear in Sleep: No .
--- OUTSIDE RECORDS SUMMARY | 2025-05-28 11:00 | XMS_ITS | Encounter Summary ---
Author Organization [facility] Address [address] [place] [address] Care Team Providers Care Conference And Event Organiser Name Role Phone Angel Hawkins MD Primary Care Provider [phone] Reason for Visit * Reason Comments Well Women Visit Encounter Details Date Type Department Care Team (Late st Contact Info) Description 05/28/2025 11:00 AM EDT Office Visit [facility] [address] [facility] [address] [place] [phone] Savage Mejia, [address] [place], [place] [id number] Well woman exam with routine gynecological exam; UTI symptoms; Pelvic pain in female Social History Tobacco Use Types Packs/Day Years Used Date Smoking Tobacco: Never Assessed Alcohol Use Standard Drinks/Week Comments Yes 1 (1 standard drink = 0.6 oz pur e alcohol) Comments No Sex and Gender Information Value Date Recorded Sex Assigned at Female 06/20/2023 8:42 AM EDT Legal Sex Female 6:49 PM EDT Gender Identity Female 06/20/2023 8:42 AM EDT Sexual Orientation Not on file documented as of this encounter Last Filed Vital Signs Vital Sign Reading Time Taken Comments Blood Pressure 122/80 05/28/2025 11:19 AM EDT Pulse - - Temperature - - Respiratory Rate - - Oxygen Saturation - - Inhaled Oxygen Concentration - - Weight 127 kg (281 lb) 05/28/2025 11:19 AM EDT Height - - Body Mass Index 46.76 09/15/2023 11:31 AM EDT documented in this encounter Plan of Treatment Upcoming Encounters Date Type Department Care Team (Late st Contact Info) Description 06/04/2025 2:30 PM EDT Ancillary Procedure [facility] OB [address] [facility] [place] [phone] 06/02/2026 8:30 AM EDT Procedure Visit [facility] [address] [facility] [place] [phone] Savage Mejia, DO [address] [facility] [address] [place], [place] [id number] Scheduled Orders Name Type Priority Associated Diagnoses Orde r Schedule Pap Smear Pathology and Cytology Routine Well woman exam with routine gynecological exam Ordered: 05/28/2025 US Pelvis w/ TV Imaging Routine Pelvic pain in female Expected: 05/28/2025, Expires: 11/28/2025 documented as of this encounter Procedures Procedure Name Priority Date/Time Associated Diagnosis Comments POCT URINALYSIS DIPSTICK Routine 05/28/2025 11:23 AM EDT UTI symptoms documented in this encounter Results * (ABNORMAL) POCT urinalysis dipstick manually resulted (05/28/2025 11:23 AM EDT) Color, UA Yellow Clarity, UA Clear Glucose, UA Negative Negative - 1999(110) ++++ mg/dL Bilirubin, UA Negative Negative - 4(70) +++ mg/dL Ketones, UA Negative Negative - 160(16) ++++ mg/dL Spec Grav, UA 1.020 1 - 1.03 Blood, UA Negative Negative - 50 Flip/mcL pH, UA 6.0 5 - 9 Protein, UA Negative Negative - 1999(20) ++++ mg/dL Urobilinogen, UA 0.2 0.2 - 12 mg/dL Leukocytes, UA Moderate Negative - 500+++ Bee/mcL Nitrite, UA Negative Negative - Positive Urine 05/28/2025 11:2 3 AM EDT us Savage Mejia DO POINT OF CARE TEST ENTER/EDIT OR DERABLES Final Result documented in this encounter Visit Diagnoses Diagnosis Well woman exam with routine gynecological exam Routine gynecological examination UTI symptoms Pelvic pain in female Unspecified symptom associated with female genital organs documented in this encounter Care Teams Conference And Event Organiser Relationship Specialty Start Date End Date Angel Hawkins MD [address] [place] [address] [place] [address] PCP - General Family Medicine 04/27/23 documented as of this encounter
--- OUTSIDE RECORDS SUMMARY | 2025-05-28 15:16 | XMS_ITS | Encounter Summary ---
Author Organization [facility] Address [address] [place] [address] Phone Care Team Providers Care Traffic Analyst Name Role Phone Unavailable Primary Care Provider Unavailabl e Encounter Details Date Type Department Care Team (Late st Contact Info) Description 06/16/2023 Patient Risk Score ACO Care Management [address] [place] [address] Social History Tobacco Use Types Packs/Day Years Used Date Smoking Tobacco: Never Assessed Comments Unknown Sex and Gender Information Value Date Recorded Sex Assigned at Not on file Legal Sex Female 9:02 PM EST Gender Identity Not on file Sexual Orientation Not on file documented as of this encounter Plan of Treatment Not on file documented as of this encounter Visit Diagnoses Not on filedocumented in this encounter
--- OUTSIDE RECORDS SUMMARY | 2025-05-28 15:16 | XMS_ITS | Data Portability ---
Author Organization [employer] [facility], medicare dme Address [address] [place] [address] Assessment Encounter Date Assessment Date Assessment LastModified by Organization Details LastModified Time 11/05/2024 11/05/2024 PMH reviewed. PE unremarkable. Cleared, forms completed lrieth Not available 11/05/2024 16:40:49 Plan of Treatment Reminders Order Date Submit Date Provider Last Modified By Organization Details Last Modified Time Details Appointments None recorde d. Lab drug screen, urine 11/05/20 lrieth In-Office Order, Internal Use Only DO Not Attach Compendium DO Not Attach Compendium, Do Not Delete/merge, [id number] 4 16:40:36 Referral None recorde d. Procedures None recorde d. Surgeries None recorde d. Imaging XR, chest, 2 view 11/05/20 24 NAUN Not available 08:20:12 Medication Orders None recorde d. Patient TargetsNo targets recorded. Patient Instructions Encounter Date Encounter Id Patient Instructions Last Modified By Organization Details Last Modified Time 11/05/2024 [id number] lift assessment* lrieth Not availabl e 11/05/2024 16:40:36 Reason for Referral None Reported. Results Created Date Observation Date Name Description Value Unit Range Abnormal Flag Note LastModifiedBy Organization Detail LastModifiedTime 03/17/20 24 03/19/2024 XR, chest , 1 view No observ ation record ed. [email or web address] Not Available 04/2024 10:13:21 11/05/20 XR, chest , 2 view No observ ation record ed. [email or web address] Not Available 2024 08:20:12 Result Notes None recorded. Problems No Known Problems Medical Equipment None Reported. Allergies Allergen ID Allergen Name Allergen Category Reaction Reaction Severity Criticality Documentation Date Start Date Code Code System Note Provider Name and Address Organization Details Recorded Time 81575 morphine medicatio n hives Not available Not available 03/17/2024 7052 RxNorm Dannielle Ha [facility] 16:21:42 Medications Name Sig Start Date Stop Date Status Note LastModified by Organization Details LastModified Time clonidine HCl 0.1 mg tablet TAKE 1 TABLET BY MOUTH AT BEDTIME 03/17 completed Not Available Not Available Not Available doxycycline hyclate 100 mg capsule TAKE 1 CAPSULE BY MOUTH 2 TIMES A DAY 03/17 completed Not Available Not Available Not Available trazodone 50 mg tablet TAKE 1 TABLET BY MOUTH AT BEDTIME NEEDED active Not Available Not Available No t Available azithromyci n 250 mg tablet TAKE 2 TABLETS BY MOUTH ON DAY 1, THEN 1 TABLET DAILY ON DAYS 2-5 03/17 completed Not Available Not Available Not Available ibuprofen 800 mg tablet TAKE 1 TABLET BY MOUTH EVERY 8 HOURS NEEDED FOR MILD PAIN 03/17 completed Not Available Not Available Not Available hydrocodone 5 mg-acetamin ophen 325 mg tablet TAKE 1 TABLET BY MOUTH EVERY 4 HOURS 03/17 completed Not Available Not Available Not Available prednisone 20 mg tablet TAKE 2 TABLETS BY MOUTH ONCE DAILY WITH FOOD OR MILK FOR 5 DAYS 03/17 completed Not Available Not Available Not Available ciprofloxac in 250 mg tablet TAKE 1 TABLET BY MOUTH 2 TIMES A DAY (morning and before bedtime) for 5 days 03/17 completed Not Available Not Available Not Available bupropion HCl 100 mg tablet TAKE 1 TABLET BY MOUTH 2 TIMES A DAY 03/17 completed Not Available Not Available Not Available tamsulosin 0.4 mg capsule TAKE 1 CAPSULE BY MOUTH IN THE MORNING FOR 10 DAYS 03/17 completed Not Available Not Available Not Available cephalexin 500 mg capsule Take 1 capsule (500 mg) by mouth in the morning and 1 capsule (500 mg) at noon and 1 capsule (500 mg) in the evening and 1 capsule (500 mg) 03/17 completed Not Available Not Available Not Available buspirone 10 mg tablet TAKE 1 TABLET BY MOUTH 2 TIMES A DAY 03/17 completed Not Available Not Available Not Available montelukast 10 mg tablet TAKE 1 TABLET BY MOUTH EVERY DAY active Not Available Not Available No t Available methylpredn isolone 4 mg tablets in a dose pack TAKE 1 ROW OF TABLETS BY MOUTH EACH DAY INSTRUCTE D ON THE PACKAGE 03/17 completed Not Available Not Available Not Available albuterol sulfate HFA 90 mcg/actuati on aerosol inhaler INHALE 2 PUFFS BY MOUTH EVERY 4 HOURS NEEDED active Not Available Not Available No t Available bupropion HCl XL 300 mg 24 hr tablet, extended release TAKE 1 TABLET BY MOUTH IN THE MORNING WITH 150MG FOR TOTAL OF 450MG 2023 active Not Available Not Available Not Avai lable bupropion HCl XL 150 mg 24 hr tablet, extended release Take 1 tablet by mouth daily with 300mg dose to total 450mg daily active Not Available Not Available No t Available clonidine HCl ER 0.1 mg tablet,exte nded release,12 hr TAKE 1 TABLET BY MOUTH AT BEDTIME 03/17 completed Not Available Not Available Not Available lurasidone 20 mg tablet TAKE 1 TABLET BY MOUTH EVERY DAY WITH FOOD active Not Available Not Available No t Available PreviDent 5000 Booster Plus 1.1 % dental paste BRUSH DAILY DIRECTED 03/17 completed Not Available Not Available Not Available Vitals Date Recorded Body height Body mass index (BMI) Body weight Heart rate Body temperature Systolic And Diastolic Provider Name and Address Organization Details Last Updated DateTime 4 165.1 cm 36.8 kg/m2 626911. 63 g 93 /min 97.6 [degF] 118/75 mm[Hg] Dannielle Ha [facility] 4 16:21:19 Date Recorded Body height Body mass index (BMI) Body weight Heart rate Body temperature Systolic And Diastolic Provider Name and Address Organization Details Last Updated DateTime 4 165.1 cm 42 kg/m2 076470. 43 g 97 /min 98 [degF] 143/79 mm[Hg] Tenisha Medrano [facility] 4 15:31:27 Social History None recorded. Functional Status None recorded. Mental Status None recorded. Family History Nothing Reported. Medical History Condition Response Anxiety Disorder Y Diabetes N IBD N Coronary Artery Disease N CHF N Arthritis N Hyperthyroidism N Addiction Medicine-Suboxone N Cancer N IBS N COPD N Depression N Hypothyroidism N Allergies N Asthma Y Hx Heart Attack N Reflux/GERD N [place] [id number] N High Cholesterol N Hypertension N Kidney Disease N Gynecological HistoryNo gynecological history recorded. Obstetrics History GPAL:G 0 P 0 0 0 0 Past Encounters Encounter ID Performer Location Encounter Start Date Encounter Closed Date Diagnosis/Indication Diagnosis SNOMED-CT Code Diagnosis ICD10 Code Diagnosis Note [id number] MONICA WADSWORTH APRN [facility] [address] [place] [address] 03/17/2024 15:41:22 04/11/2024 22:54:50 History and physical examination, pre-employment 241038358 Z02.1 -Detailed History obtained, hx of asthma/anx iety controlled , takes daily medication s as prescribed . No history of MSK injury limited patient or posing risk for injury. No dependenci es or drug use. Ambulating normally, mood congruent, in good spirits. vitals stable. Full physical exam including Neuro and psychiatri c all wnml.-Pre employment papers signed, dated, given to patient. No work restrictio ns at this time. [id number] TEE LESTER APRN [facility] [address] [place] [address] 11/05/2024 14:57:39 11/05/2024 16:41:08 Drug of abuse screen 27055704 Z02.83 History an d physical examination, pre-employment 007832040 Z02.1 Health Concerns Section Related Observation LastModified by Organization Detai ls LastModified Time None Recorded Concern Status LastModified by Organization Details LastModified Time None Recorded Advance Directives Directive None Recorded Payers Insurance Date Sequence Insurance Name Policy Number Policy Moore Covered Member ID Moore Member ID Guarantor Name 03/17/2024 [facility] Tish Ross [id number] Tish Ross Notes Date Note Type Note Provider Name and Address Organization Details Recorded Time 4 text/html 29 year old female with hx of anxiety and asthma presents for pre employment physical exam. Patient denies any active or concerning symptoms at this time. Denies dependencies, drug or abnormal etoh use. Patient reports compliance with prescribed daily medications. denies previous injuries. denies limitations in daily activities. denies underlying depression or mood disorders. Patient denies sob, wheezing, cp, palpitations, syncope, headaches or seizure history. MONICA WADSWORTH, [place] [address], [place], [address], [facility] 03/18/2024 09:28:51 4 text/html PhysicalReported bypatient.source of patient informationpatient Patient presents for a physical for:Employment Additional Services Requested:chest x-ray; hearing test; drug screening TEE LESTER APRN [address], [place], [address], [facility] 11/05/2024 16:41:02 OBGyn Episode No OBEpisode recorded.
--- OUTSIDE RECORDS SUMMARY | 2025-05-28 15:16 | XMS_ITS | Encounter Summary ---
Author Organization [facility] Address [address] [place] [address] Care Team Providers Care Attending Radiologist Name Role Phone Angel Hawkins MD Primary Care Provider [phone] Encounter Details Date Type Department Care Team (Late st Contact Info) Description 05/28/2025 Bamboo flowsheet [facility] [address] [place] [phone] Savage Mejia [address] [place], [place] [id number] Social History Tobacco Use Types Packs/Day Years [...] as of this encounter Plan of Treatment Upcoming Encounters Date Type Department Care Team (Late st Contact Info) Description 06/04/2025 2:30 PM EDT Ancillary Procedure [facility] [place] [address] [place] [phone] 06/02/2026 8:30 AM EDT Procedure Visit [facility] [place] [address] [place] [address] Savage Mejia, DO [address] [place] [address] [address] [place] [address] documented as of this encounter Visit Diagnoses Not on filedocumented in this encounter Care Teams Attending Radiologist Relationship Specialty Start Date End Date Angel Hawkins MD [address] [place], [place] [phone] PCP - General Family Medicine 04/27/23 documented as of this encounter
--- OUTSIDE RECORDS SUMMARY | 2025-05-28 15:16 | XMS_ITS | Encounter Summary ---
Author Organization [facility] Address [address] [place] [address] Phone Care Team Providers Care Loan Interviewer Mortgage Name Role Phone Unavailable Primary Care Provider Unavailabl e Encounter Details Date Type Department Care Team (Late st Contact Info) Description 07/17/2023 Patient Risk Score ACO Care Management [address] [place] [address] Social History Tobacco Use Types [...]
--- OUTSIDE RECORDS SUMMARY | 2025-05-28 15:16 | XMS_ITS | Encounter Summary ---
Author Organization [facility] Address [address] [place] [address] Care Team Providers Care Automatic Developer Name Role Phone Angel Hawkins MD Primary Care Provider [phone] Encounter Details Date Type Department Care Team (Latest Contact Info) Description 05/27/2025 Travel Social History Tobacco Use Types Packs/Day Years [...] 06/04/2025 2:30 PM EDT Ancillary Procedure [facility] [address] [facility] [place] [phone] 06/02/2026 8:30 AM EDT Procedure Visit [facility] [address] [facility] [place] [address] Savage Mejia DO [address] [place], [place] [id number] documented as of this encounter Visit Diagnoses Not on filedocumented in this encounter Care Teams Automatic Developer Relationship Specialty Start Date End Date Angel Hawkins MD [address] [place] [address] PCP - General Family Medicine 04/27/23 documented as of this encounter
--- OUTSIDE RECORDS SUMMARY | 2025-05-28 15:16 | XMS_ITS | Clinical Summary ---
Author Organization [facility] Address [address] [place] [address] Phone Care Team Providers Care Machine Silk Screen Printer Name Role Phone Unavailable Primary Care Provider Unavailabl e Social History Tobacco Use Types Packs/Day Years Used Date Smoking Tobacco: Never Assessed Comments Unknown Sex and Gender Information Value Date Recorded Sex Assigned at Not on file Legal Sex Female 9:02 PM EST Gender Identity Not on file Sexual Orientation Not on file Plan of Treatment Health Maintenance Due Date Last Done Comments HIV Screening 1997 Lipid Panel 1997 Yearly Adult Physical 1997 MMR Vaccines (1 of 1 - Stand madhuri series) 1998 Varicella Vaccines (1 of 2 - 13+ 2-dose series) 2010 Hepatitis C Screening 2015 Hepatitis B Vaccines (1 of 3 - 19+ 3-dose series) 02/03/2016 Cervical Cancer Screening 2018 HPV/Cotest 2018 Pap Smear 2018 DTaP/Tdap/Td Vaccines (1 - Tdap) 2019 COVID-19 Vaccine (1 - 2023-2 5 season) 2024 Influenza Vaccine (#1) 2025 Zoster Vaccines (1 of 2) 2047 HIB Vaccines Aged Out No longer eligi ble based on patient's age to complete this topic HPV Vaccines (No Doses Required) Completed Hepatitis A Vaccines Aged Out No long er eligible based on patient's age to complete this topic IPV Vaccines Aged Out No longer eligi ble based on patient's age to complete this topic Meningococcal Vaccine Aged Out No andree guerrero eligible based on patient's age to complete this topic Pneumococcal Vaccine: Pediat rics and At-Risk Adult Patients Aged Out No longer raul gible based on patient's age to complete this topic Rotavirus Vaccines Aged Out No longer eligible based on patient's age to complete this topic
--- OUTSIDE RECORDS SUMMARY | 2025-05-28 15:17 | XMS_ITS | Patient Health Record ---
Author Organization [facility] es Address [address] [place] [address] Care Team Providers Care Coil Machine Supervisor Name Role Phone Kamryn Valencia Primary Care Provider Allergies Allergen (clinical drug ingredient) Drug/Non Drug Allergy documented on EMR Reaction Allergy Type Onset Date Status amoxicillin / clavulanate Augmentin Unknown Drug Allergy Active morphine Morphine Sulfate Unknown Drug Allergy Active Results Component Value Reference Range Notes Thyroid Profile II Reviewed date:05/01/2025 02:32:18 PM Interpretation: Performing Lab:, [facility], [facility] [place] Notes/Report: Reason for Exam Medication management;Major depressive Performed at: [facility], [address] [id number] Supervisor Telephone Clerks: Carlos Laurent PhD, Phone: [phone] Triiodothryronine (T3) Uptake 25 24-39 % Lab [facility] Thyroxine (T4) 6.5 4.5-12.0 ug/dL Free Thyroxine Index 1.6 1.2-4.9 Lab Brigitte Triiodothyronine,(T3) 123 71-180 ng/ dL TSH ([facility]) 1.430 0.450-4.500 u[iU]/mL Complete Blood Count Auto Di ff Reviewed date:04/17/2025 01:02:52 PM Interpretation: Performing Lab:, [facility], [facility] [place] Notes/Report: Reason for Exam Medication management;Major depressive disorder, recurrent White Blood Count 8.8 3.8-11.6 10*3/uL Uncorrected WBC 8.8 3.8-11.6 10*3/uL Red Blood Count 4.53 3.60-5.00 10*6/uL Hemoglobin 13.2 11.8-15.4 g/dL Hematocrit 38.1 34.0-46.4 % Mean Corpuscular Volume 84.1 80-100 fL Mean Corpuscular Hemoglobin 29.1 24.7-34.3 pg Mean Corpuscular HGB Conc 34.6 32.0-35.0 g/dL Red Cell Distribution Width 12.7 11.9-15.3 % Platelet Count 362 150-450 10*3/uL Mean Platelet Volume 7.9 6.3-10.7 fL Neutrophils % (Auto) 72.7 . % Lymphocytes % (Auto) 18.3 . % Monocytes % (Auto) 6.5 . % Eosinophils % (Auto) 1.9 . % Basophils % (Auto) 0.6 . % NRBC% 0.0 0-0.5 /100{WBC} Neutrophils # (Auto) 6.4 1.8-7.7 10*3/uL Lymphocytes # (Auto) 1.6 1.00-4.8 10*3/uL Monocytes # (Auto) 0.6 0.0-0.8 10*3/uL Eosinophils # (Auto) 0.2 0.0-0.45 10*3/uL Basophils # (Auto) 0.1 0.0-0.2 10*3/uL Comprehensive Metabolic Pane l Reviewed date:04/17/2025 04:41:09 PM Interpretation: Performing Lab:, [facility], [address] [place] Notes/Report: Reason for Exam Medication management;Major depressive disorder, recurrent Glucose 90 70-100 mg/dL Random Glucose Reference Range is dependent on time and content of last meal. Glucose of more than 200 mg/dL in a nonstressed, ambulatory subject supports the diagnosis of Diabetes Mellitus. ADA recommended reference range Blood Urea Nitrogen 12 7-25 mg/dL Creatinine 0.71 0.60-1.20 mg/dL Sodium 139 136-145 mmol/L Potassium 4.1 3.5-5.1 mmol/L Chloride 106 98-107 mmol/L Carbon Dioxide 28.2 21.0-31.0 mmol/L Calcium 9.1 8.6-10.3 mg/dL Total Protein 6.4 6.4-8.9 g/dL Albumin Level 4.3 3.5-5.7 g/dL Globulin 2.1 Albumin/Globulin Ratio 2.0 Bilirubin,Total 0.4 0.3-1.0 mg/dL Aspartate Amino Transferase 44 13-39 U/L Alanine Aminotransferase 119 7-52 U/L Alkaline Phosphatase 91 34-104 U/L Estimated GFR >60.0 Anion Gap 8.9 6.0-15.0 meq/L Lipase Reviewed date:04/17/2025 04:41:16 PM Interpretation: Performing Lab: Notes/Report: Reason for Exam Medication management;Major depressive disorder, recurrent Lipase 33.0 11.0-82.0 U/L Amylase Reviewed date:04/17/2025 04:41:23 PM Interpretation: Performing Lab: Notes/Report: Reason for Exam Medication management;Major depressive disorder, recurrent Amylase 32 29-103 U/L Reason For Referral No Information Medications Medication SIG (Take, Route, Frequency, Duration) Notes Start Date End Date Status Escitalopram Oxalate 10 MG 1 tablet Orally Once a day; Duration: 30 day(s) 05/27/2025 Active Montelukast Sodium 10 MG 1 tablet Orally Once a day Active Ondansetron HCl 4 MG 1 tablet Orally Once a day; Duration: 30 days As needed for nausea 06/20/2024 Active traZODone HCl 50 MG 1 tablet at bedtime as needed Orally Once a day 10/21/2023 Active busPIRone HCl 10 MG 1 tablet Orally Twic e a day; Duration: 30 days 12/16/2023 Not-Taking Prazosin HCl 1 MG 1 capsule Orally twi ce a day; Duration: 30 days 09/12/2024 07/12/2025 Active ARIPiprazole 5 MG 1 tablet Orally Once a day; Duration: 30 day(s) 05/27/2025 Active Social History Tobacco Use: Social History Observation Description Date Details (start date - stop date) Never Smoker NA - NA Tobacco Screen: Question Answer Notes Are you a: never smoker Depression Screening (PHQ-9): Question Answer Notes Little interest or pleasure in doing things Mallory ral days Feeling down, depressed, or hopeless Not at all Trouble falling or staying asleep, or sleeping t oo much Not at all Feeling tired or having little energy Not at all Poor appetite or overeating Not at all Feeling bad about yourself-o r that you are a failure or have let yourself or your family down Not at all Trouble concentrating on thi ngs, such as reading the newspaper or watching television Not at all Moving or speaking so slowly that other people could have noticed. Or the opposite being so fidgety or restless that you have been moving around a lot more than usual Not at all Thoughts that you would be b ismael off , or of hurting yourself in some way Not at all Total Score 1 Intepretation Minimal Depression Tobacco Control (Standard) Question Answer Notes Tobacco use: Nonsmoker Problems Problem Type SNOMED Code ICD Code Onset Dates Problem Status W/U Status Risk Notes Problem Posttraumatic stress disorder (94943543) PTSD (post-traumati c stress disorder) (F43.10) Active confirmed Problem Anxiety disorder (948726600) Anxiety disorder (F41.9) Active confirmed Problem Obese class II (137242881931122) BMI 35.0-35.9,adul t (Z68.35) Active confirmed Problem Recurrent major depression (disorder) (43287528) Major depressive disorder, recurrent (F33.9) Active confirmed Problem Obese class II (225827044495608) BMI 37.0-37.9, adult (Z68.37) Active confirmed Problem Recurrent major depression (47455928) Major depressive disorder, recurrent episode with anxious distress (F33.9) Active confirmed Vital Signs Heart Rate 86 /min 05/13/2025 Blood pressure diastolic 78 mm Hg 05/13/2025 Oximetry 98 % 05/13/2025 Height 65 in 05/13/2025 Blood pressure systolic 122 mm Hg 05/13/2025 Weight 283.4 lbs 05/13/2025 BMI 47.16 kg/m2 05/13/2025 Encounters Encounter Location Date Provider Diagnosis [facility] [address] [place] [address] 05/31/2024 [facility] [address] [place] [address] 06/18/2024 [facility] [address] [place] [address] 08/21/2024 [facility] Major depressive disorder, recurrent F33.9 [facility] [address] [place] [address] 12/18/2024 Kamryn Valencia Major depressive disorder, recurrent F33.9 [facility] [address] [place] [address] 03/01/2025 Kamryn Valencia Major depressive disorder, recurrent F33.9 [facility] [address] [place] [address] 04/15/2025 Kamryn Valencia [facility] [address] [place] [address] 06/13/2024 Kamryn Valencia Major depressive disorder, recurrent F33.9 and Anxiety disorder F41.9 [facility] [address] [place] [address] 07/11/2024 Kamryn Valencia Major depressive disorder, recurrent F33.9 [facility] [address] [place] [address] 09/12/2024 Kamryn Valencia Major depressive disorder, recurrent F33.9 ; Anxiety disorder F41.9 and PTSD (post-traumatic stress disorder) F43.10 [facility] [address] [place] [address] 10/10/2024 Kamryn Valencia Major depressive disorder, recurrent F33.9 and PTSD (post-traumatic stress disorder) F43.10 [facility] [address] [place] [address] 11/16/2024 Kamryn Valencia Major depressive disorder, recurrent F33.9 ; PTSD (post-traumatic stress disorder) F43.10 and Anxiety disorder F41.9 [facility] [address] [place] [address] 02/01/2025 Kamryn Valencia Major depressive disorder, recurrent F33.9 ; Anxiety disorder F41.9 and PTSD (post-traumatic stress disorder) F43.10 [facility] [address] [place] [address] 03/01/2025 Kamryn Valencia Major depressive disorder, recurrent F33.9 and PTSD (post-traumatic stress disorder) F43.10 [facility] [address] [place] [address] 03/15/2025 Kamryn Valencia Major depressive disorder, recurrent F33.9 ; Anxiety disorder F41.9 and PTSD (post-traumatic stress disorder) F43.10 [facility] [address] [place] [address] 04/15/2025 Kamryn Valencia Medication managemen t Z79.899 and Major depressive disorder, recurrent F33.9 [facility] [address] [place] [address] 04/26/2025 Kamryn Valencia Major depressive disorder, recurrent F33.9 and PTSD (post-traumatic stress disorder) F43.10 [facility] [address] [place] [address] 05/13/2025 Kamryn Valencia PTSD (post-traumatic stress disorder) F43.10 and Major depressive disorder, recurrent episode with anxious distress F33.9 [facility] [address] [place] [address] 05/27/2025 Kamryn Valencia Major depressive disorder, recurrent episode with anxious distress F33.9 Assessments Encounter Date Diagnosis (ICD Code) Assessment Notes Treatment Notes Treatment Clinical Notes Section Notes 06/13/2024 Major depressive disorder, recurrent (ICD-10 - F33.9) Recommended treatment is: FDA [...] is in agreement with treatment plan. . Change current treatment plan Patient/Guardian will call sooner if symptoms worsen. Patient understands to go to ER if needed if symptoms become severe. Crisis Intervention plan was discussed and agreed upon. Patient/Guardian will call 911 in case of emergency. Emergency contact information was provided to the patient/guardian. 09/12/2024 Major depressive disorder, recurrent (ICD-10 - F33.9) Recommended treatment is: _ FDA approved medication for this age group [...] treatment plan. . Continue current treatment plan with increase in vraylar. Patient/Guardian will call sooner if symptoms worsen. Patient understands to go to ER if needed if symptoms become severe. Crisis Intervention plan was discussed and agreed upon. Patient/Guardian will call 911 in case of emergency. Emergency contact information was provided to the patient/guardian. 02/01/2025 Major depressive disorder, recurrent (ICD-10 - F33.9) Recommended treatment is: _ FDA approved medication for this age group [...] contact information was provided to the patient/guardian. 03/01/2025 Major depressive disorder, recurrent (ICD-10 - F33.9) Recommended treatment is: _ FDA approved medication for this age group [...] treatment plan. . Continue current treatment plan with addition of Glutamate. FU in 2 weeks in office. Patient/Guardian will call sooner if symptoms worsen. Patient understands to go to ER if needed if symptoms become severe. Crisis Intervention plan was discussed and agreed upon. Patient/Guardian will call 911 in case of emergency. Emergency contact information was provided to the patient/guardian. 03/15/2025 Major depressive disorder, recurrent (ICD-10 - F33.9) Recommended treatment is: _ FDA approved medication for this age group [...] contact information was provided to the patient/guardian. 04/26/2025 Major depressive disorder, recurrent (ICD-10 - F33.9) Recommended treatment is: _ FDA approved medication for this age group [...] contact information was provided to the patient/guardian. 05/27/2025 Major depressive disorder, recurrent episode with [...] contact information was provided to the patient/guardian. 03/15/2025 Anxiety disorder (ICD-10 - F41.9) 05/13/2025 PTSD (post-traumatic stress disorder) (ICD-10 - F43.10) 05/13/2025 Major depressive disorder, recurrent episode with anxious distress (ICD-10 - F33.9) . Recommended treatment is: _ FDA approved medication for this age group [...] treatment plan. . Continue current treatment plan with increase in prazosin to bId. Conduct Genesigh testing. Patient/Guardian will call sooner if symptoms worsen. Patient understands to go to ER if needed if symptoms become severe. Crisis Intervention plan was discussed and agreed upon. Patient/Guardian will call 911 in case of emergency. Emergency contact information was provided to the patient/guardian. 04/15/2025 Major depressive disorder, recurrent (ICD-10 - F33.9) Recommended treatment is: _ FDA approved medication for this age group [...] does not endorse exhibiting symptoms aligning with bj. . The patient verbalizes understanding with all questions answered thoroughly and is in agreement with treatment plan. . Change current treatment plan to Trintelliix Patient/Guardian will call sooner if symptoms worsen. Patient understands to go to ER if needed if symptoms become severe. Crisis Intervention plan was discussed and agreed upon. Patient/Guardian will call 911 in case of emergency. Emergency contact information was provided to the patient/guardian. 04/15/2025 Medication management (ICD-10 - Z79.899) 04/26/2025 PTSD (post-traumatic stress disorder) (ICD-10 - F43.10) Continue with prazosin. 03/01/2025 Major depressive disorder, recurrent (ICD-10 - F33.9) 03/01/2025 PTSD (post-traumatic stress disorder) (ICD-10 - F43.10) 10/10/2024 PTSD (post-traumatic stress disorder) (ICD-10 - F43.10) 10/10/2024 Major depressive disorder, recurrent (ICD-10 - F33.9) Recommended treatment is: _ FDA approved medication for this age group [...] treatment plan. . Continue current treatment plan with buproprion. Trial low dose of aripiprazole. Patient/Guardian will call sooner if symptoms worsen. Patient understands to go to ER if needed if symptoms become severe. Crisis Intervention plan was discussed and agreed upon. Patient/Guardian will call 911 in case of emergency. Emergency contact information was provided to the patient/guardian. 11/16/2024 PTSD (post-traumatic stress disorder) (ICD-10 - F43.10) 11/16/2024 Major depressive disorder, recurrent (ICD-10 - F33.9) Recommended treatment is: FDA approved medication for this age group include Selective Serotonin Reuptake Inhibitors (SSRI) and Selective Norepinephrine Reuptake Inhibitors (SNRI). . Selective serotonin reuptake inhibitors? can cause nausea, headache, upset stomach, diarrhea, [...] with treatment plan. . Continue current treatment plan. Patient/Guardian will call sooner if symptoms worsen. Patient understands to go to ER if needed if symptoms become severe. Crisis Intervention plan was discussed and agreed upon. Patient/Guardian will call 911 in case of emergency. Emergency contact information was provided to the patient/guardian. 12/18/2024 Major depressive disorder, recurrent (ICD-10 - F33.9) 09/12/2024 Anxiety disorder (ICD-10 - F41.9) 02/01/2025 Anxiety disorder (ICD-10 - F41.9) 07/11/2024 Major depressive disorder, recurrent (ICD-10 - F33.9) Recommended treatment is: _ FDA approved medication for this age group [...] contact information was provided to the patient/guardian. 08/21/2024 Major depressive disorder, recurrent (ICD-10 - F33.9) 06/13/2024 Anxiety disorder (ICD-10 - F41.9) 09/12/2024 PTSD (post-traumatic stress disorder) (ICD-10 - F43.10) 02/01/2025 PTSD (post-traumatic stress disorder) (ICD-10 - F43.10) 11/16/2024 Anxiety disorder (ICD-10 - F41.9) 03/15/2025 PTSD (post-traumatic stress disorder) (ICD-10 - F43.10) Plan Of Treatment Next Appt Details Provider Name:Kamryn Valencia, 0 06/12/2025 10:00:00 AM, [address] [place] [address], [phone], Insurance Providers Payer Name Payer Address Payer Phone Subscriber Number Group Number Insured Name Patient Relationship to Insured Coverage Start Date Coverage End Date [facility] [address] [address] [place] [address] [id number] FRED WOO Self - patient is the insured 3 Medical (General) History Medical History History ICD Code anxiety depression Surgical History Surgery Date(Month/Year) tonsillectomy
--- OUTSIDE RECORDS SUMMARY | 2025-05-28 15:17 | XMS_ITS | Encounter Summary ---
Author Organization [facility] Address [address] [place] [address] Phone Care Team Providers Care Driller Operator Name Role Phone Unavailable Primary Care Provider Unavailabl e Encounter Details Date Type Department Care Team (Late st Contact Info) Description 05/16/2023 Patient Risk Score ACO Care Management [address] [place] [address] Social History Tobacco Use Types [...]
--- OUTSIDE RECORDS SUMMARY | 2025-05-28 15:17 | XMS_ITS | Encounter Summary ---
Author Organization [facility] Address [address] [place] [address] Care Team Providers Care Sales Enablement Specialist Name Role Phone Angel Hawkins MD Primary Care Provider [phone] Encounter Details Date Type Department Care Team (Late st Contact Info) Description 08/08/2023 Clinisync Result Encounter [facility] External Department Unsolicited Teddy Mejia, DO [address] [place] [address] Social History Tobacco Use Types Packs/Day Years [...] AM EDT Sexual Orientation Not on file COVID-19 Exposure Response Date Recorded In the last 10 days, have yo u been in contact with someone who was confirmed or suspected to have Coronavirus/COVID-19? No / Unsure 08/07/2023 3:39 PM EDT documented as of this encounter Plan of Treatment Upcoming Encounters Date Type Department Care Team (Late st Contact Info) Description 06/04/2025 2:30 PM EDT Ancillary Procedure [facility] [address] [place] [address] 06/02/2026 8:30 AM EDT Procedure Visit [facility] [address] [place] [id number] Teddy Mejia [address] [place], [facility] documented as of this encounter Procedures Procedure Name Priority Date/Time Associated Diagnosis Comments US PELVIS W/ TRANSVAGINAL 08/08/2023 4:09 PM EDT documented in this encounter Results * US PELVIS W/ TRANSVAGINAL (08/08/2023 4:09 PM EDT) Anatomical Region Laterality Modality Other 08/08/2023 4:09 PM EDT Narrative 08/08/2023 4:09 PM EDT [address] [address] Ultrasound Report Signed Patient: TISH WOO MR#: [id number] : 1995 Acct:[id number] Age/Sex: 28 / F ADM Date: 08/08/23 Loc: US Attending Dr: Teddy Mejia D.O. Ordering Physician: Teddy Mejia D.O. Date of Service: 08/08/23 Procedure(s): US pelvis w/ transvaginal Accession Number(s): [id number] cc: Teddy Mejia D.O.; Physician,Non-Staff M.D. [address] [address] Patient Name: TISH WOO MRN: [id number] date: 1995 Sex: F Assigned Patient Location: US Current Patient Location: US Accession/Order Number: [id number] Exam Date: 08/08/2023 14:47 Report Date: 08/08/2023 16:09 At the request of: TEDDY MEJIA Procedure: US pelvis w/ transvaginal EXAMINATION: US pelvis w/ transvaginal HISTORY: MENORRHAGIA , chronic pelvic pain on right side COMPARISON: No relevant comparison available. TECHNIQUE: Transabdominal and/or transvaginal sonographic examination was performed as indicated by examination type. 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 Uterus size: 7.7 x 3.1 x 5.4 cm ENDOMETRIUM: Not well seen; but not abnormally thickened. RIGHT OVARY: Normal size and appearance. Duplex Doppler demonstrates normal waveform and flow; resistive index 0.6. Ovary size: 2.4 x 1.8 x 2.7 cm LEFT OVARY: Normal size and appearance. Duplex Doppler demonstrates normal waveform and flow; resistive index 0.6. Ovary size: 2.4 x 1.8 x 2.7 cm CUL-DE-SAC: Unremarkable. No significant free fluid. BLADDER: Unremarkable. OTHER: None. US/US pelvis w/ transvaginal IMPRESSION: 1. Heterogeneous uterus which is not well seen were displayed on today's study, but suspicious for bicornuate uterus. Consider follow-up ultrasound for reevaluation and/or MRI of pelvis. Electronically authenticated by: LOUIS GODINEZ Date: 08/08/2023 16:09 Dictated By: Louis Godinez M.D. Signed By: 08/08/23 1612 DD/ 1609 TD/TT: Hearing Impaired Teacher: Procedure Note Radiology, Radiologist, MD - 08/08/2023 [place] [id number] Ultrasound Report Signed Patient: TISH WOO [facility]#: [id number] : 1995Acct:[id number] Age/Sex: 28 / FADM Date: 08/08/23 Loc: US Attending Dr: Teddy Mejia D.O. Ordering Physician: Teddy Mejia D.O. Date of Service: 08/08/23 Procedure(s): US pelvis w/ transvaginal Accession Number(s): [id number] cc: Teddy Mejia D.O.; Physician,Non-Staff [facility]adha [address] [place] [id number] Patient Name: TISH WOO MRN: [id number] date: 1995 Sex: F Assigned Patient Location: US Current Patient Location: US Accession/Order Number: [id number] Exam Date: 08/08/2023 14:47 Report Date: 08/08/2023 16:09 At the request of: TEDDY MEJIA Procedure: US pelvis w/ transvaginal EXAMINATION: US pelvis w/ transvaginal HISTORY: MENORRHAGIA , chronic pelvic pain on right side COMPARISON: No relevant comparison available. TECHNIQUE: Transabdominal and/or transvaginal sonographic examination was performed as indicated by examination type. 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 Uterus size: 7.7 x 3.1 x 5.4 cm ENDOMETRIUM: Not well seen; but not abnormally thickened. RIGHT OVARY: Normal size and appearance. Duplex Doppler demonstratesnormal waveform and flow; resistive index 0.6. Ovary size: 2.4 x 1.8 x 2.7 cm LEFT OVARY: Normal size and appearance. Duplex Doppler demonstrates normal waveform and flow; resistive index 0.6. Ovary size: 2.4 x 1.8 x 2.7 cm CUL-DE-SAC: Unremarkable. No significant free fluid. BLADDER: Unremarkable. OTHER: None. US/US pelvis w/ transvaginal IMPRESSION: 1. Heterogeneous uterus which is not well seen were displayed on today's study, but suspicious for bicornuate uterus. Consider follow-up ultrasound for reevaluation and/or MRI of pelvis. Electronically authenticated by: LOUIS GODINEZ Date: 08/08/2023 16:09 Dictated By: Louis Godinez M.D. Signed By:08/08/23 1612 DD/ 1609 TD/TT: Hearing Impaired Teacher: us Teddy Mejia DO [facility] Final Result documented in this encounter Visit Diagnoses Not on filedocumented in this encounter Care Teams Sales Enablement Specialist Relationship Specialty Start Date End Date Angel Hawkins MD [address] [place] [address] PCP - General Family Medicine 04/27/23 documented as of this encounter
[2025-05-30 14:09] LABS: Age Gdln ACOG Testing Note (.); IGP, rfx Aptima HPV ASCU Note (.)
== END 2025-05-28 15:14 | disposition home or self-care (01) ==
LOC: LAB 15:13
PROVIDERS: PCP Family Medicine; Visit Provider Obstetrics & Gynecology
DX: Z01.419 Encounter for gynecological examination (general) (routine) without abnormal findings (principal)
CPT/HCPCS: 88175